=== PATIENT | female | born 1975 | race Caucasian/White ===

== ENCOUNTER 2017-12-12 11:18 | Observation (INO) ==
[2017-12-12] MEDS ORDERED: Ondansetron 4 MG/2 ML VIAL IVP ONE (11:29)
[2017-12-12] MEDS ORDERED: 0.9 % Sodium Chloride 1,000 ML IVC ONE (11:29)
[2017-12-12] MEDS ORDERED: *HR* HYDROmorphone (PF) 1 MG/ML SYRINGE IVP ONE ×3 (11:29→13:46)
--- NOTE | 2017-12-12 11:33 | Emergency Department Note ---
Disposition Clinical Impression: Renal colic Hematuria Qualifiers: Hematuria type: unspecified type Qualified Code(s): R31.9 - Hematuria, unspecified Disposition: Home, Self-Care Instructions: Renal Colic (ED), Abdominal Pain (ED) Referrals: Roderick Moran MD [Primary Care Provider] - Forms: ED Satisfaction Letter, Work/School Release Time of Disposition: 13:47 Abdominal Pain HPI - General Chief Complaint: ED Abdominal Pain Stated Complaint: Right flank pain Time Seen by Provider: 12/12/17 11:21 Source: patient, EMS Mode of arrival: ambulatory Limitations: no limitations Nursing Notes Reviewed: Yes Vital Signs Reviewed: Yes - History of Present Illness HPI Narrative: 42-year-old who states she has recurrent kidney stones and pyelonephritis who comes in with severe right flank pain. Pt Subjective Complaint: abdominal pain, flank pain Onset (ago): Just [employer] Consistency: constant Location: RUQ, R flank Pain Scale: 10 Quality: aching Radiation: back Migration to: no migration Improves with: nothing Worsens with: nothing Context: history of similar episodes Associated symptoms: Reports: nausea. Denies: fever Treatments prior to arrival: none - Related Data Home Medications Medication Instructions Recorded Confirmed ALPRAZolam [Xanax 1 MG Tablet] 1 mg PO BID 10/24/15 10/24/15 Estradiol [Estrace] 2 mg PO DAILY 10/24/15 10/24/15 Melatonin [Melatin] 3 mg PO HS PRN 10/24/15 10/24/15 Trazodone HCl [TraZODone] 100 mg PO HS 10/24/15 10/24/15 Previous Rx's Medication Instructions Recorded Ciprofloxacin HCl [Cipro] 500 mg PO BID #14 tab 10/26/15 OxyCODONE/APAP 5/325 [Percocet 1 each PO Q4HR PRN #18 tablet 10/26/15 5/325 MG] Promethazine [Phenergan] 12.5 mg PO Q6HR #18 tablet 10/26/15 OxyCODONE/APAP 5/325 [Percocet 1 each PO Q4HR PRN #10 tablet 10/30/15 5/325 MG] Ibuprofen [Motrin] 800 mg PO Q8HR #100 tablet 11/12/15 Phenazopyridine [Pyridium] 100 mg PO DAILY #7 tablet 11/12/15 levoFLOXacin [Levaquin] 500 mg PO DAILY #10 tablet 11/12/15 Ondansetron [Zofran ODT] 8 mg SL Q6HR PRN #20 tab.rapdis 02/29/16 traMADol [Ultram] 50 mg PO TID PRN #20 tablet 02/29/16 Oxycodone HCl/Acetaminophen 1 each PO Q6HR PRN #10 tablet 04/27/16 [Percocet 5-325 mg Tablet] OxyCODONE/APAP 5/325 [Percocet 1 each PO Q8HR PRN #15 tablet 04/30/16 5/325 MG] Polyethylene Glycol 3350 [MiraLAX] 17 gm PO DAILY #30 powd.pack 04/30/16 Dicyclomine [Bentyl] 10 mg PO QID PRN #20 capsule 05/10/16 traMADol [Ultram] 50 mg PO Q6HR PRN #20 tablet 05/10/16 Ondansetron ODT [Zofran ODT] 4 mg SL Q6HR PRN #10 tab.rapdis 05/21/16 Ondansetron [Zofran] 8 mg PO Q8HR PRN #8 tablet 05/29/16 Oxycodone HCl [Oxaydo] 7.5 mg PO Q6HR PRN #21 tablet.orl 05/29/16 Ondansetron HCl [Zofran] 4 mg PO 1-2XD PRN #7 tablet 06/28/16 Nitrofurantoin (BID) [Macrobid] 100 mg PO BID 7 Days capsule 08/21/16 Nitrofurantoin (BID) [Macrobid] 100 mg PO BID #14 capsule 10/07/16 Tramadol HCl [Ultram] 50 mg PO QID PRN #10 tab 10/07/16 OxyCODONE/APAP 5/325 [Percocet 1 each PO Q6HR PRN #7 tablet 05/20/17 5/325 MG] Ondansetron ODT [Zofran ODT] 4 mg SL Q6HR #12 tab.rapdis 06/13/17 Oxycodone HCl/Acetaminophen 1 each PO Q8H #9 tablet 06/13/17 [Percocet 5-325 mg Tablet] Naproxen [Naprosyn] 500 mg PO BID #14 tablet 07/14/17 Promethazine [Phenergan] 25 mg PO Q6HR PRN #10 tablet 07/14/17 OxyCODONE/APAP 5/325 [Percocet 1 each PO Q6HR PRN #15 tablet 08/12/17 5/325 MG] Promethazine [Phenergan] 25 mg RC Q6HR #15 supp.rect 08/12/17 Ondansetron ODT [Zofran ODT] 4 mg SL Q4HR #10 tab.rapdis 09/03/17 Allergies Allergy/AdvReac Type Severity Reaction Status Date / Time codeine Allergy Itching Verified 06/13/17 10:46 diphenhydramine Allergy See Verified 06/13/17 10:46 [From Benadryl] Comments hydrocodone [From Vicodin] Allergy Itching Verified 06/13/17 10:46 ibuprofen Allergy See Verified 06/13/17 10:46 Comments latex AdvReac Rash Verified 06/13/17 10:46 All systems ED: reviewed and negative except as stated. Constitutional: Denies: fever, chills, weakness, weight change Eyes: Denies: eye pain, eye discharge, vision change ENT ED: Denies: ear pain, throat pain, dental pain, hearing loss, epistaxis, congestion, dysphagia Cardiovascular: Denies: chest pain, palpitations, dyspnea on exertion, edema, syncope Respiratory: Denies: cough, dyspnea, wheezes, hemoptysis, stridor Gastrointestinal: Reports: abdominal pain. Denies: nausea, vomiting, diarrhea, constipation, hematemesis, melena, hematochezia Genitourinary: Denies: dysuria, frequency, hematuria, discharge Musculoskeletal: Reports: back pain. Denies: neck pain, arthralgia, myalgia Integumentary: Denies: rash, abrasion, lesions Neurological: Denies: headache, weakness, numbness, paresthesias, confusion, abnormal gait, vertigo Psychiatric: Denies: anxiety, depression, suicidal thoughts, homicidal thoughts , auditory hallucinations, visual hallucinations Endocrine: Denies: fatigue Hematological/Lymphatic: Denies: easy bleeding, easy bruising Allergic/Immunologic: Denies: facial swelling, urticaria Abdominal Pain PMH - Past Medical History Medical history: Reports: asthma, hypertension, kidney stones, migraine, renal disease, other Female Surgical History: Reports: cholecystectomy, hysterectomy, other ASSET MANAGER history: Reports: no ASSET MANAGER history Psychiatric history: Reports: anxiety - Social History Smoking status: Former smoker Alcohol use: Reports: none Drug use: Reports: marijuana Physical Exam - General Limitations: no limitations General appearance: alert - Head Head exam: atraumatic, normocephalic, normal inspection - Eye Eye exam: Present: normal appearance, PERRL, EOMI - ENT ENT exam: normal exam, normal oropharynx, mucous membranes moist - Neck Neck exam: Present: normal inspection, full ROM, trachea midline - Chest Chest inspection: Present: normal inspection, symmetric chest wall rise - Respiratory Respiratory exam: Present: normal lung sounds bilaterally - Cardiovascular Cardiovascular exam: Present: regular rate, normal rhythm, normal heart sounds - Abdominal Exam Abdominal exam: Present: soft - Extremities Exam Extremities exam: Present: normal inspection, full ROM. Absent: tenderness, pedal edema - Expanded Lower Extremity Exam Neurovascular/Tendon exam: Absent: motor deficit, sensory deficit, tendon deficit Gait: observed and normal - Back Exam Back exam: Present: normal inspection, full ROM. Absent: tenderness - Neurological Exam Neurological exam: Present: alert, oriented X3 - Psychiatric Psychiatric exam: Present: normal affect, normal mood - Skin Skin exam: Present: warm, dry, intact, normal color Course - Reevaluation(s) Reevaluation #1: The patient has a number of allergies and states the only thing she knows that she can take for sure is Dilaudid. Time: 11:35 - Consultations Consultation #1: Discussed with Time: 14:53 Vital Signs Temperature 98.4 F 12/12/17 11:23 Pulse Rate 91 12/12/17 11:23 Respiratory Rate 17 12/12/17 11:23 Blood Pressure 172/105 12/12/17 11:23 O2 Sat by Pulse Oximetry 100 12/12/17 11:23 Temperature 98.4 F 12/12/17 11:27 Pulse Rate 94 12/12/17 12:34 Respiratory Rate 18 12/12/17 12:34 Blood Pressure 155/102 12/12/17 12:34 O2 Sat by Pulse Oximetry 98 12/12/17 12:34 Oxygen Delivery Oxygen Delivery Room Air Abdominal Pain - Lab Data Result diagrams: 12/12/17 11:55 12/12/17 11:55 Lab Results 12/12/17 12/12/1712/12/18 Range/Units 11:34 11:55 11:55 WBC 9.6 (4.3-11.1) K/mcL RBC 4.12 (3.82-4.97) M/mcL Hgb 12.5 (11.5-15.4) g/dL Hct 38.0 (35.3-44.9) % MCV 92.2 (83.0-100.0) fL MCH 30.3 (28.0-33.3) pg MCHC 32.9 (31.6-35.5) g/dL RDW 12.5 (11.5-14.5) % Plt Count 204 (140-400) K/mcL MPV 11.0 (9.4-12.4) fL Immature Gran % 0.4 (0-4) % Seg Neutrophils % 64.2 % Lymphocytes % 28.9 % Monocytes % 4.0 % Eosinophils % 2.2 % Basophils % 0.3 % Neutrophils # 6.2 (1.6-8.9) K/mcL Lymphocytes # 2.8 (0.6-4.6) K/mcL Monocytes # 0.4 (0.0-1.3) K/mcL Eosinophils # 0.2 (0.0-0.6) K/mcL Basophils # 0.0 (0.0-0.2) K/mcL Sodium 139 (136-145) mEq/L Potassium 3.9 (3.5-5.1) mEq/L Chloride 108 H (98-107) mEq/L Carbon Dioxide 24 (23-29) mEq/L BUN 8 (6-20) mg/dL Creatinine 0.60 (0.60-1.20) mg/dL Est GFR ( Amer) > 60 (> 60) Est GFR (Non-Af Amer) > 60 (> 60) BUN/Creatinine Ratio 13 (6-26) Glucose 112 H (70-105) mg/dL Calculated Osmolality 287 (280-300) Calcium 9.3 (8.6-10.3) mg/dL Total Bilirubin 0.3 (0.3-1.0) mg/dL Direct Bilirubin 0.1 (0.0-0.2) mg/dL Indirect Bilirubin 0.2 (0.0-1.2) mg/dL AST 15 (13-39) Units/L ALT 15 (7-52) Units/L Alkaline Phosphatase 56 (34-104) Units/L Troponin I < 0.03 (< 0.04) ng/mL Serum Total Protein 7.0 (6.4-8.9) g/dL Albumin 4.2 (3.5-5.7) g/dL Globulin 2.8 (2.4-3.5) g/dL Albumin/Globulin Ratio 1.5 (1.1-2.2) Amylase 27 L (29-103) Units/L Lipase 7 L (11-82) Units/L Urine Color Yellow (Yellow) Urine Clarity Slightly Hazy (Clear) Urine pH 6.0 (5.0-8.0) pH Units Ur Specific [place] 1.016 (1.010-1.025) Urine Protein Negative (Neg-Trace) mg/dL Urine Glucose (UA) Normal (Normal) mg/dL Urine Ketones Negative (Negative) mg/dL Urine Blood Large H (Negative) Urine Nitrite Negative (Negative) Urine Bilirubin Negative (Negative) Urine Urobilinogen Normal (Normal) mg/dL Ur Leukocyte Esterase Negative (Negative) Urine Microscopic RBC TNTC H (0-3) per hpf Urine Microscopic WBC 0-3 (0-3) per hpf Ur Squamous Epith Cells Many H (None-Few) per lpf Urine Bacteria Few (None-Few) per hpf Hyaline Casts None Seen (None-Few) per lpf Ur Culture Indicated? NO (NO) - Radiology Data Radiology results reviewed: Yes I reviewed the patient's radiology results. Abdomen/Pelvis CT 12/12/17 11:29 IMPRESSION: Punctate nonobstructing renal calculi Normal caliber appendix Tiny focus of gas is seen within the bladder. Recommend correlation with urinalysis to exclude infection D/ / Alberto Burnham MD / Alberto Burnham MD Interpreting Provider: Alberto Burnham MD - EKG Data EKG attestation: Yes I reviewed and interpreted this EKG. EKG shows normal: sinus rhythm Rate: normal Rhythm: NSR [place]/QRS: normal Interpretation: no acute changes
[2017-12-12 11:50] LABS: Bilirubin,Urine Negative (Negative); Blood,Urine Large (Negative); Color,Urine Yellow (Yellow); Glucose,Urine (UA) Normal (Normal); Ketones,Urine Negative (Negative); Leukocyte Esterase,Urine Negative (Negative); Nitrite,Urine Negative (Negative); Protein,Urine Negative (Neg-Trace); Specific Gravity,Urine 1.016 (1.010-1.025); Urobilinogen,Urine Normal (Normal)
[2017-12-12 11:51] LABS: Bacteria,Urine Few per hpf (None-Few); Hyaline Casts,Urine None Seen per lpf (None-Few); RBC,Urine TNTC per hpf (0-3); Squamous Epithelial Cell,Urine Many per lpf (None-Few); WBC,Urine 0-3 per hpf (0-3)
[2017-12-12 11:52] LABS: Clarity,Urine Slightly Hazy (Clear)
[2017-12-12 12:12] LABS: Basophils % 0.3 %; Eosinophils # 0.2 K/mcL (0.0-0.6); Eosinophils % 2.2 %; Hemoglobin 12.5 g/dL (11.5-15.4); Immature Granulocytes % 0.4 % (0-4); Lymphocytes # 2.8 K/mcL (0.6-4.6); Lymphocytes % 28.9 %; Mean Corpuscular HGB Conc 32.9 g/dL (31.6-35.5); Mean Corpuscular Hemoglobin 30.3 pg (28.0-33.3); Mean Corpuscular Volume 92.2 fL (83.0-100.0); Monocytes # 0.4 K/mcL (0.0-1.3); Neutrophils # 6.2 K/mcL (1.6-8.9); Platelet Count 204 K/mcL (140-400); Red Blood Count 4.12 M/mcL (3.82-4.97); Red Cell Distribution Width 12.5 % (11.5-14.5); Segmented Neutrophils % 64.2 %
[2017-12-12] MEDS ORDERED: *HR* Promethazine 25 MG/ML VIAL IVP ONE (12:22)
[2017-12-12 12:33] LABS: Troponin I < 0.03 ng/mL (< 0.04)
[2017-12-12 12:36] LABS: Alanine Aminotransferase 15 Units/L (7-52); Albumin 4.2 g/dL (3.5-5.7); Albumin/Globulin Ratio 1.5 (1.1-2.2); Alkaline Phosphatase 56 Units/L (34-104); Amylase 27 Units/L (29-103); Aspartate Amino Transferase 15 Units/L (13-39); BUN/Creatinine Ratio 13 (6-26); Bilirubin,Direct 0.1 mg/dL (0.0-0.2); Bilirubin,Indirect 0.2 mg/dL (0.0-1.2); Bilirubin,Total 0.3 mg/dL (0.3-1.0); Blood Urea Nitrogen 8 mg/dL (6-20); Calcium 9.3 mg/dL (8.6-10.3); Carbon Dioxide 24 mEq/L (23-29); Chloride 108 mEq/L (98-107); Globulin 2.8 g/dL (2.4-3.5); Glucose 112 mg/dL (70-105); Lipase 7 Units/L (11-82); Osmolality,Calculated 287 (280-300); Potassium 3.9 mEq/L (3.5-5.1); Sodium 139 mEq/L (136-145); eGFR For African Americans > 60 (> 60); eGFR For Non-African Americans > 60 (> 60)
[2017-12-12] MEDS ORDERED: Loratadine 10 MG TABLET PO PRN (15:35)
--- NOTE | 2017-12-12 15:58 | Internal Med History&Physical ---
Date of Encounter: 12/12/17 Time of Encounter: 15:53 Assessment and Plan (1) Renal colic Current visit: Yes Status: Acute Renocortical from kidney stone, we will continue IV fluids IV pain control urologist was consulted from the ED nausea and vomiting will give phenergan. (2) Urinary tract infection Current visit: Yes Status: Acute Possible urinary tract infection CT scan shows gas in the bladder, will get UC and start ceftriaxone Qualifiers: Urinary tract infection type: acute cystitis Hematuria presence: with hematuria Qualified Code(s): N30.01 - Acute cystitis with hematuria (3) Hypertension Current visit: Yes Status: Chronic continue lisinopril Qualifiers: Hypertension type: essential hypertension Qualified Code(s): I10 - Essential (primary) hypertension (4) Obesity (BMI 35.0-39.9 without comorbidity) Current visit: Yes Status: Chronic life style modification discussed (5) Anxiety Current visit: Yes Status: Chronic continue xanax Internal Medicine - H&P: HPI Chief complaint: right flank pain Admitted From: Home Plans for Post Hospital Care: Home History of present illness: Ms. Henderson is a 42 year old female who has a history of kidney stone, recurrent UTI, hypertension and anxiety asthma presenting emergency room for right flank pain. Right flank pain started a few days ago, got worse this morning, pain is sharp and located in the right flank radiating down to the right groin,7 out of 10, associated with severe nausea vomiting. She also complaining of burning and a frequently urination. Reported a subjective fever last night. CT scan shows punctuated a nonobstructing renal calculi, some gas in the bladder. She follows up with Dr. Flores urologist. UA shows hematuria. Patient is going to be admitted for severe right renal colic and a possible infection. We will give IV fluids and the ceftriaxone Past Med Surg Social Fam HX - Past Medical History Medical history: asthma, hypertension, kidney stones, migraine, renal disease, other Psychiatric history: anxiety - Past Surgical History Surgical History: cholecystectomy, hysterectomy - Social History Smoking Status: Former smoker Smokeless Tobacco Status: No Alcohol use: none Drug use: marijuana - Family History Father Living Status: Still Living Hx Family Cancer: Yes (breast cancer) Hx Family Genitourinary Disorders: Yes (renal stone, CKD) Internal Medicine - H&P: Meds ALPRAZolam [Xanax 1 MG Tablet] 1 mg PO TID PRN 10/24/15 [History] Estradiol [Estrace] 1 mg PO DAILY 10/24/15 [History] Albuterol Sulfate [Albuterol Inhaler] 2 puff IH Q6H PRN 12/12/17 [History] Cetirizine HCl [Zyrtec] 10 mg PO DAILY PRN 12/12/17 [History] Diclofenac Sodium [Voltaren] 50 mg PO BID PRN 12/12/17 [History] Lisinopril/Hydrochlorothiazide [Zestoretic 20-25 mg Tablet] 1 each PO DAILY 11/30 [History] Zolpidem [Ambien] 10 mg PO HS PRN 12/12/17 [History] 3 Allergy/AdvReac Type Severity Reaction Status Date / Time codeine Allergy Itching Verified 06/13/17 10:46 diphenhydramine Allergy See Verified 06/13/17 10:46 [From Benadryl] Comments hydrocodone [From Vicodin] Allergy Itching Verified 06/13/17 10:46 ibuprofen Allergy See Verified 06/13/17 10:46 Comments latex AdvReac Rash Verified 06/13/17 10:46 All Systems PM: A all-system review of systems was performed and is negative for pertinent findings except as documented above in the HPI. - Constitutional Vitals: Temp Pulse Resp BP Pulse Ox 98.4 F 94 17 176/92 98 12/12/17 11:27 12/12/17 12:34 12/12/17 15:25 12/12/17 15:25 12/12/17 12:34 General appearance: Present: A&O X 3, morbidly obese, pleasant Exam: CONSTITUTIONAL: Patient appears as an age appropriate female well developed, in no acute distress. EYES Clear sclerae, bilateral pupils are equal, reactive to light and accommodation. Extraocular movements are intact RESPIRATORY: No accessory muscle use, bilateral clear to auscultation, no wheezing, no crackles/rales. CARDIOVASCULAR: Regular heart rate, normal S1 and S2, no murmurs GASTROINTESTINAL: bowel sounds present, soft, right CVA tenderness. No hepatosplenomegaly. No bilateral CVA tenderness MUSCULOSKELETAL: Joints in normal range of motion, no clubbing, no edema, no cyanosis. Bilateral peripheral pulses 2+ LYMPHATIC no lymphadenopathy in neck, groin and axilla bilaterally, no thyromegaly. NEUROLOGIC: CN II to XII are grossly intact, no focal neurological deficit. Deep tendon reflexes 2+ bilaterally. Normal light touch sensation to upper and lower extremity PSYCHIATRIC: Oriented x3, with good insight, mood is euthymic. No hallucinations or delusions. SKIN: Skin warm and dry, no rashes, no open wound. Internal Med - H&P Results - Labs CBC & Chem 7: 12/12/17 11:55 12/12/17 11:55
[2017-12-12] MEDS ORDERED: Naloxone 0.4 MG/ML INJ IVP PRN (16:08)
[2017-12-12] MEDS ORDERED: *HR* OxyCODONE Immed Rel 5 MG TABLET PO PRN (16:16)
--- NOTE | 2017-12-12 16:20 | Urology - Consult Note ---
Date of Encounter: 12/12/17 Time of Encounter: 16:18 - Assessment and Plan (1) Bladder pain Current Visit: Yes Status: Acute Assessment and plan: Unsure of cause of patient's bladders pain at this time. During her last visit I discussed with her that I believe that she could have interstitial cystitis. A common bladder irritants handout was given to the patient. She never followed up after that visit to discuss any improvement with stopping different dietary items. This could be somewhat of her cause of her bladder discomfort. (2) Renal colic Current Visit: Yes Status: Acute Assessment and plan: I question whether the patient truly has renal colic as her exam is not consistent with renal pain. Her urinalysis is stable compared to prior urinalysis. I have personally reviewed her CT scan which did not show any obstructing stone. Continue pain management per primary team. (3) Hematuria Current Visit: Yes Status: Acute Assessment and plan: Patient has had a complete workup for hematuria. No need for cystoscopic evaluation at this time. Qualifiers: Hematuria type: asymptomatic microscopic Qualified Code(s): R31.21 - Asymptomatic microscopic hematuria Urology CN:[facility] Consult date: 12/12/17 Reason for consult Urology: Other (right flank pain) Requesting physician: Meredith Bo History of present illness: Meaghan is a 42-year-old female well known to me for history of persistent bladder discomfort as well as known history of microscopic hematuria and air within the bladder. Patient underwent cystoscopic evaluation in early 2017 which was negative for any obvious bladder cause for the patient's discomfort. Patient has had multiple CT scans done within the past couple of years which have always shown punctate renal stones without any obvious obstructive cause for her discomfort. Patient now presents emergency Department secondary to severe right-sided flank pain and with some nausea and vomiting. Patient states that she had to leave work to come to the hospital. Her pain is a 10 out of 10 in nature. It is located in her right flank with some radiation to her right groin. Patient's laboratory values were unremarkable. Her urinalysis showed large blood which is consistent with past urinalyses. Past Med Surg Social Fam HX - Past Medical History Medical history: asthma, hypertension, kidney stones, migraine, renal disease, other Psychiatric history: anxiety - Past Surgical History Surgical History: cholecystectomy, hysterectomy - Social History Smoking Status: Former smoker Smokeless Tobacco Status: No Alcohol use: none Drug use: marijuana - Family History Father Living Status: Still Living Hx Family Cancer: Yes (breast cancer) Hx Family Genitourinary Disorders: Yes (renal stone, CKD) Mother Living Status: Still Living Hx Family Cancer: Yes (breast cancer) Medications and Allergies ALPRAZolam [Xanax 1 MG Tablet] 1 mg PO TID PRN 10/24/15 [History] Estradiol [Estrace] 1 mg PO DAILY 10/24/15 [History] Albuterol Sulfate [Albuterol Inhaler] 2 puff IH Q6H PRN 12/12/17 [History] Cetirizine HCl [Zyrtec] 10 mg PO DAILY PRN 12/12/17 [History] Diclofenac Sodium [Voltaren] 50 mg PO BID PRN 12/12/17 [History] Lisinopril/Hydrochlorothiazide [Zestoretic 20-25 mg Tablet] 1 each PO DAILY 11/30 [History] Zolpidem [Ambien] 10 mg PO HS PRN 12/12/17 [History] 3 Allergy/AdvReac Type Severity Reaction Status Date / Time codeine Allergy Itching Verified 06/13/17 10:46 diphenhydramine Allergy See Verified 06/13/17 10:46 [From Benadryl] Comments hydrocodone [From Vicodin] Allergy Itching Verified 06/13/17 10:46 ibuprofen Allergy See Verified 06/13/17 10:46 Comments latex AdvReac Rash Verified 06/13/17 10:46 Review of Systems - Constitutional no chills, no fever(s) - EENT Nose, mouth and throat: no dizziness, no headache(s) - Cardiovascular no chest pain - Respiratory no cough - Gastrointestinal abdominal pain - Genitourinary Genitourinary: no hematuria - Musculoskeletal back pain - Integumentary no erythema, no swelling - Neurological no confusion, no weakness - Psychiatric anxiety, no confusion - Hematologic/Lymphatic no lymphadenopathy - Allergic/Immunologic no throat swelling, no wheezing Exam Initial Vital Signs Temp Pulse Resp BP Pulse Ox 98.4 F 91 17 172/105 100 12/12/17 11:23 12/12/17 11:23 12/12/17 11:23 12/12/17 11:23 12/12/17 11:23 - General physical appearance Present: well developed, well nourished, moderate distress - Eyes Present: normal ocular movement. Absent: icteric - Neck Present: no masses, no lymphadenopathy - Respiratory Present: normal respiratory effort, clear to auscultation - Cardiovascular Cardiovascular exam IM: RRR, tachycardia - Abdomen Abdomen: Present: soft. Absent: suprapubic tenderness - Integumentary Present: no rash, no abnormal pigmentation - Neurologic Present: normal coordination. Absent: confused - Additional Findings Back: Patient has some right flank pain on very light palpation. This was located more on the right side as opposed to more posterior location which would be kidney. Urology Results - Labs 12/12/17 11:55 12/12/17 11:55 Abnormal lab results Chloride 108 mEq/L (98-107) H 12/12/17 11:55 Glucose 112 mg/dL (70-105) H 12/12/17 11:55 Amylase 27 Units/L (29-103) L 12/12/17 11:55 Lipase 7 Units/L (11-82) L 12/12/17 11:55 Urine Blood Large (Negative) H 12/12/17 11:34 Urine Microscopic RBC TNTC per hpf (0-3) H 12/12/17 11:34 Ur Squamous Epith Cells Many per lpf (None-Few) H 12/12/17 11:34 All other labs normal. - Imaging CT scan - abdomen: image reviewed CT scan - pelvis: image reviewed Consult Discharge Plan - Plan Referrals: Roderick Moran MD [Primary Care Provider] -
[2017-12-12] MEDS: *HR* Heparin 5,000 UNIT/ML VIAL SQ SCH ×2 (16:48→20:53)
[2017-12-12] MEDS: cefTRIAXone 1,000 MG in Water for inj. (sterile) 20 ML 10 ML IVP SCH (16:49)
[2017-12-12] MEDS: Ringers Solution, Lactated 1,000 ML IVC SCH ×2 (16:50→20:54)
[2017-12-12] MEDS: OXYCODONE Oral CONC 10 MG/0.5 ML ORAL.SYG SL PRN (20:58)
[2017-12-12] MEDS: ALPRAZolam 1 MG TABLET PO PRN (20:59)
[2017-12-12] MEDS: *HR* Promethazine 25 MG/ML VIAL IVP PRN (20:59)
[2017-12-13] MEDS: *HR* Promethazine 25 MG/ML VIAL IVP PRN ×2 (04:33→10:50)
[2017-12-13] MEDS: OXYCODONE Oral CONC 10 MG/0.5 ML ORAL.SYG SL PRN ×2 (04:34→10:50)
[2017-12-13 04:35] LABS: Basophils % 0.3 %; Eosinophils # 0.3 K/mcL (0.0-0.6); Eosinophils % 2.7 %; Hemoglobin 11.6 g/dL (11.5-15.4); Immature Granulocytes % 0.4 % (0-4); Lymphocytes # 2.7 K/mcL (0.6-4.6); Lymphocytes % 29.3 %; Mean Corpuscular HGB Conc 33.1 g/dL (31.6-35.5); Mean Corpuscular Hemoglobin 30.4 pg (28.0-33.3); Mean Corpuscular Volume 91.6 fL (83.0-100.0); Mean Platelet Volume 10.2 fL (9.4-12.4); Monocytes # 0.4 K/mcL (0.0-1.3); Monocytes % 4.3 %; Neutrophils # 5.7 K/mcL (1.6-8.9); Platelet Count 222 K/mcL (140-400); Red Blood Count 3.82 M/mcL (3.82-4.97); Red Cell Distribution Width 12.4 % (11.5-14.5)
[2017-12-13 04:55] LABS: BUN/Creatinine Ratio 10 (6-26); Blood Urea Nitrogen 6 mg/dL (6-20); Calcium 9.1 mg/dL (8.6-10.3); Carbon Dioxide 27 mEq/L (23-29); Chloride 106 mEq/L (98-107); Glucose 107 mg/dL (70-105); Osmolality,Calculated 284 (280-300); Potassium 3.8 mEq/L (3.5-5.1); Sodium 138 mEq/L (136-145); eGFR For African Americans > 60 (> 60); eGFR For Non-African Americans > 60 (> 60)
[2017-12-13] MEDS: *HR* Heparin 5,000 UNIT/ML VIAL SQ SCH (06:14)
--- NOTE | 2017-12-13 07:58 | Urology Progress Note ---
Date of Encounter: 12/13/17 Time of Encounter: 07:57 - Assessment and Plan (1) Bladder pain Current Visit: Yes Status: Acute Assessment and plan: Improved. (2) Renal colic Current Visit: Yes Status: Acute Assessment and plan: Do not believe the patient is having kidney pain. Patient CT scan is negative for any obvious ureteral obstruction. Urology will sign off. Patient will need follow-up in 3-4 weeks for further discussion regarding possible interstitial cystitis. (3) Hematuria Current Visit: Yes Status: Acute Qualifiers: Hematuria type: asymptomatic microscopic Qualified Code(s): R31.21 - Asymptomatic microscopic hematuria Progress Note Narrative: Patient seen. Patient states that her right-sided flank discomfort is improved but now she has developed some left-sided flank discomfort. Vital signs within normal. Labs normal. Objective Initial Vital Signs Temp Pulse Resp BP Pulse Ox 98.4 F 91 17 172/105 100 12/12/17 11:23 12/12/17 11:23 12/12/17 11:23 12/12/17 11:23 12/12/17 11:23 - General physical appearance Present: well developed - Respiratory Present: normal expansion, normal respiratory effort - Abdomen Present: soft. Absent: tender - Labs 12/13/17 03:40 12/13/17 03:40 Diabetes panel 12/13/17 Range/Units 03:40 Sodium 138 (136-145) mEq/L Potassium 3.8 (3.5-5.1) mEq/L Chloride 106 (98-107) mEq/L Carbon Dioxide 27 (23-29) mEq/L BUN 6 (6-20) mg/dL Creatinine 0.62 (0.60-1.20) mg/dL Glucose 107 H (70-105) mg/dL Calcium 9.1 (8.6-10.3) mg/dL Calcium panel 12/13/17 Range/Units 03:40 Calcium 9.1 (8.6-10.3) mg/dL Pituitary panel 12/13/17 Range/Units 03:40 Sodium 138 (136-145) mEq/L Potassium 3.8 (3.5-5.1) mEq/L Chloride 106 (98-107) mEq/L Carbon Dioxide 27 (23-29) mEq/L BUN 6 (6-20) mg/dL Creatinine 0.62 (0.60-1.20) mg/dL Glucose 107 H (70-105) mg/dL Calcium 9.1 (8.6-10.3) mg/dL Adrenal panel 12/13/17 Range/Units 03:40 Sodium 138 (136-145) mEq/L Potassium 3.8 (3.5-5.1) mEq/L Chloride 106 (98-107) mEq/L Carbon Dioxide 27 (23-29) mEq/L BUN 6 (6-20) mg/dL Creatinine 0.62 (0.60-1.20) mg/dL Glucose 107 H (70-105) mg/dL Calcium 9.1 (8.6-10.3) mg/dL Consult Discharge Plan - Plan Referrals: Roderick Moran MD [Primary Care Provider] -
[2017-12-13] MEDS: cefTRIAXone 1,000 MG in Water for inj. (sterile) 20 ML 10 ML IVP SCH (09:22)
[2017-12-13] MEDS: ALPRAZolam 1 MG TABLET PO PRN (09:22)
[2017-12-13 10:51] VITALS: BP 127/80
--- NOTE | 2017-12-13 11:17 | Discharge Summary ---
Date of Encounter: 12/13/17 Time of Encounter: 11:13 - Discharge Diagnosis (1) Renal colic Priority: Primary Status: Resolved (2) Urinary tract infection Priority: Secondary Status: Resolved Qualifiers: Urinary tract infection type: acute cystitis Hematuria presence: with hematuria Qualified Code(s): N30.01 - Acute cystitis with hematuria (3) Hypertension Priority: Secondary Status: Chronic Qualifiers: Hypertension type: essential hypertension Qualified Code(s): I10 - Essential (primary) hypertension (4) Obesity (BMI 35.0-39.9 without comorbidity) Priority: Secondary Status: Chronic (5) Anxiety Priority: Secondary Status: Chronic Hospital course: Ms. Henderson is a 42 year old female who has a history of kidney stone, recurrent UTI, hypertension and anxiety asthma presenting emergency room for right flank pain. Right flank pain started a few days ago, got worse this morning, pain is sharp and located in the right flank radiating down to the right groin,7 out of 10, associated with severe nausea vomiting. She also complaining of burning and a frequently urination. Reported a subjective fever last night. CT scan shows punctuated a nonobstructing renal calculi, some gas in the bladder. She follows up with Dr. Flores urologist. UA shows hematuria. Urology was consulted, signed off, follow up as outpatient for possible interstitial cystitis. Patient's renal colic resolved, IV Dilaudid DC'd. Afebrile no white counts she has been tolerating his diet discharged home on stable condition Discharge discussed with: patient Time spent discussing smoking cessation with patient: 3 to 10 minutes - Time Spent with Patient Total time spent providing and/or coordinating discharge services: Less than 30 minutes - Discharge Medications Prescriptions: Ciprofloxacin HCl [Cipro] 250 mg PO BID 5 Days #10 tablet Home Medications: ALPRAZolam [Xanax 1 MG Tablet] 1 mg PO TID PRN 10/24/15 [History] Estradiol [Estrace] 1 mg PO DAILY 10/24/15 [History] Albuterol Sulfate [Albuterol Inhaler] 2 puff IH Q6H PRN 12/12/17 [History] Cetirizine HCl [Zyrtec] 10 mg PO DAILY PRN 12/12/17 [History] Diclofenac Sodium [Voltaren] 50 mg PO BID PRN 12/12/17 [History] Lisinopril/Hydrochlorothiazide [Zestoretic 20-25 mg Tablet] 1 each PO DAILY 11/30 [History] Zolpidem [Ambien] 10 mg PO HS PRN 12/12/17 [History] Ciprofloxacin HCl [Cipro] 250 mg PO BID 5 Days #10 tablet 12/13/17 [Rx] Allergies/Adverse Reactions: 3 Allergy/AdvReac Type Severity Reaction Status Date / Time codeine Allergy Itching Verified 06/13/17 10:46 diphenhydramine Allergy See Verified 06/13/17 10:46 [From Benadryl] Comments hydrocodone [From Vicodin] Allergy Itching Verified 06/13/17 10:46 ibuprofen Allergy See Verified 06/13/17 10:46 Comments latex AdvReac Rash Verified 06/13/17 10:46 Date of admission: 12/12/17 15:06 Primary care physician: Roderick Moran MD Discharging clinician: Meredith Bo Anticipated date of discharge: 12/13/17 - Constitutional Vitals: Temp Pulse Resp BP Pulse Ox 98.2 F 78 16 127/80 96 12/13/17 10:48 12/13/17 10:48 12/13/17 10:48 12/13/17 10:48 12/13/17 10:48 General appearance: Present: A&O X 3, morbidly obese, pleasant Exam: CONSTITUTIONAL: patient appears as an age appropriate female in no acute distress. EYES Clear sclerae, bilateral pupils are equal, reactive to light. EMOI. RESPIRATORY: No accessory muscle use, bilateral clear to auscultation, no wheezing, no crackles/rales. CARDIOVASCULAR: Regular heart rate, normal S1 and S2, no murmurs GASTROINTESTINAL: bowel sounds present, soft, no tenderness. MUSCULOSKELETAL: Joints in normal range of motion, no clubbing, no edema, no cyanosis. Bilateral peripheral pulses 2+. NEUROLOGIC: CN II to XII are grossly intact, no focal neurological deficit. - Patient Status Disposition: Home, Self-Care Condition: Good Functional capacity at discharge: independent ambulation Overall status at discharge: patient is back to baseline - Discharge Instructions Follow Up With: Roderick Moran MD [Primary Care Provider] - López Flores MD [Partnered Physician] - - Diet and Activity Activity: increase activity as tolerated, resume usual activities as tolerated Diet: advance to your usual diet
--- NOTE | 2017-12-16 08:39 | Electrocardiograph Report ---
[place] [id number] Test Date: 2017-12-12 Pat Name: Meaghan Henderson Department: 102 Room: 3A14 Gender: F Customer Acquisition Specialist: John : 1975 Requested By: Deven Miles Order Number: [id number] Reading MD: Jeannine Wallis Measurements Intervals [place] Rate: 79 P: 42 CA: 126 QRS: 57 QRSD: 95 T: 26 QT: 376 QTc: 410 Interpretive Statements SINUS RHYTHM Electronically Signed On 12-16-2017 8:37:49 EST by Jeannine Wallis
== END 2017-12-13 13:26 | disposition home or self-care (01) ==
LOC: EMEROO 11:18 → 3ANU 11:18
PROVIDERS: ADMIT Pediatrics; ATTEND Family Medicine

== ENCOUNTER 2019-06-06 11:08 | Observation (INO) ==
--- NOTE | 2019-06-06 11:20 | Emergency Department Note ---
Disposition Clinical Impression: Ureteritis, Pyelonephritis Chest pain Qualifiers: Chest pain type: chest pain on breathing Qualified Code(s): R07.1 - Chest pain on breathing; R07.81 - Pleurodynia Disposition: Admitted As Inpatient Condition: Fair Prescriptions: cephALEXin [Keflex] 500 mg PO TID 7 Days #21 capsule Morphine Sulfate Immed Rel [Morphine Sulfate] 15 mg PO Q6HR PRN 4 Days #12 tab PRN Reason: Pain Referrals: John Moran MD [Non-Partnered Physician] - Robin Armstrong MD [Partnered Physician] - Forms: ED Satisfaction Letter Time of Disposition: 13:56 SOB HPI - General Chief Complaint: ED Shortness of Breath/Dyspnea Stated Complaint: BILL Time Seen by Provider: 06/06/19 11:18 Source: patient Mode of arrival: ambulatory Limitations: no limitations Nursing Notes Reviewed: Yes Vital Signs Reviewed: Yes - History of Present Illness Patient is a 44-year-old female past medical history of metastatic lung cancer with lymphatic spread, chronic cystitis, chronic chronic recurrent ureteritis and pyelonephritis presenting for a 2 day history of left sided flank pain radiating into her left ribs and left lower quadrant of her abdomen. The patient states she was concerned due to her lung masses and felt this may be related to her cancer as she has pain which is pleuritic in nature with deep breathing. However the patient states also feels like her previous kidney stones and/or pyelonephritis. The patient states she has had cramping when she tries to urinate with pain that goes to 10 out of 10 on the pain scale which has not been well controlled with [id number] analgesics at home. The patient states that she has had some nausea and vomiting but otherwise denies fevers chills or any other concerns or complaints at this time. Upon my initial evaluation, my general impression is that the patient is in mild to moderate distress due to her symptoms. However she has awake, alert, oriented, engaged to conversation and answering questions appropriately. There are no overt lateralizing signs, the patient is in no acute distress; their skin appears to be normal in color, they are not pale, not cyanotic, and not diaphoretic, they are sitting up in hospital bed interacting appropriately with environment. Pt Subjective Complaint: pain with inspiration Onset (ago): day(s) Severity: severe Consistency/Duration: constant, gradually worsening Improves with: medication Worsens with: movement, inspiration Known history of: other (Cancer, recurrent pyelonephritis, urethritis, cystitis) Associated symptoms: Reports: pain with inspiration, nausea/vomiting Treatment prior to arrival: none Cough present: No - Related Data Home Medications Medication Instructions Recorded Confirmed Estradiol [Estrace] 1 mg PO DAILY 10/24/15 05/01/19 Albuterol Sulfate [Proventil 2 puff IH Q6H PRN 12/12/17 05/01/19 Inhaler] Lisinopril/Hydrochlorothiazide 1 each PO DAILY 12/12/17 05/01/19 [Zestoretic 20-25 mg Tablet] Depakote 1,000 mg PO HS 05/01/19 05/01/19 Previous Rx's Medication Instructions Recorded Oxycodone HCl/Acetaminophen 1 each PO Q6HR PRN 3 Days #12 05/01/19 [Percocet 5-325 mg Tablet] tablet predniSONE [PredniSONE] 40 mg PO DAILY 5 Days #10 tablet 05/01/19 OxyCODONE/APAP 5/325 [Percocet 1 each PO Q8HR PRN 3 Days #8 tablet 05/14/19 5/325 MG] Morphine Sulfate Immed Rel 15 mg PO Q6HR PRN 4 Days #12 tab 06/06/19 [Morphine Sulfate] cephALEXin [Keflex] 500 mg PO TID 7 Days #21 capsule 06/06/19 Allergies Allergy/AdvReac Type Severity Reaction Status Date / Time codeine Allergy Itching Verified 08/22/18 15:35 diphenhydramine Allergy See Verified 08/22/18 15:35 [From Benadryl] Comments hydrocodone [From Vicodin] Allergy Itching Verified 08/22/18 15:35 ibuprofen Allergy See Verified 08/22/18 15:35 Comments latex AdvReac Rash Verified 08/22/18 15:35 Review of Systems: *See History of Present Illness for more detail Constitutional: Denies: fever, chills Cardiovascular: Admits, pleuritic chest pain Respiratory: Denies: dyspnea, cough, hemoptysis Gastrointestinal: Admits: abdominal pain, left flank pain, nausea, vomiting, denies: diarrhea, constipation, hematemesis, melena, hematochezia Genitourinary: Denies: hematuria Musculoskeletal: Denies: back pain, neck pain Neurological: Denies: headache, weakness, lightheadedness/dizziness, numbness, paresthesias, difficulty with ambulation. Endocrine: Denies: fatigue All systems ED: reviewed and negative except as stated. Review of Systems: As Per HPI Past Medical History - Past Medical History Medical history: Reports: asthma, hypertension, kidney stones, migraine, renal disease, other Surgical history: Reports: cholecystectomy, hysterectomy Psychiatric history: Reports: anxiety ASSOCIATE TRAINER history: Reports: no ASSOCIATE TRAINER history - Social History Smoking Status: Former smoker Smokeless Tobacco Status: No Alcohol use: Reports: none Drug use: Reports: none, marijuana Physical Exam Constitutional: Mild to moderate distress due to pain, otherwise [id number], engaged to conversation, speech is fluid, answers questions appropriately Neuro: GCS 15, no overt focal neurological deficits Head: Atraumatic, normocephalic Eyes: Pupils equal, round and reactive to light, no scleral icterus, no conjunctival injection Neck: Trachea midline without deviation. Anterior neck is supple without swelling. *Chest: Symmetric chest wall rise *Heart: Cardiac rhythm and rate are regular with S1 and S2 , no S3 or S4 appreciated, no murmurs, gallops, rubs, or clicks. *Lungs: Lungs are clear to auscultation bilaterally, without accessory muscle use or prolonged expiratory phase. No wheezes, rhonchi or stridor appreciated. Abdomen: Diffuse tenderness to palpation. Abdomen is otherwise flat, soft to palpation, normal bowel sounds. No abdominal bruit auscultated. Non-distended, non-rigid, no organomegaly, no ascites appreciated. No pulsatile mass, no tenderness or guarding to palpation in all four quadrants, no rebound Back: Left-sided CVA tenderness Extremities: Normal capillary refill without evidence of pedal edema, joint swelling or erythema. Pulses/motor intact in all 4 extremities. Psychiatric exam: Patient displays a normal affect and mood for the environment. No overt signs of hallucination. Integumentary: warm, dry, intact, normal color. No rash, cyanosis, diaphoresis, erythema, or pallor - General Limitations: no limitations General appearance: alert, in distress Course Course Narrative: Basic labs, left-sided rib series, chest x-ray, CT scan abdomen and pelvis, fentanyl, Phenergan, Norflex for the management of patient's symptoms. I discussed my plan of care the patient she verbalizes understanding and her with plan. Vital Signs Temperature 99.8 F H 06/06/19 11:10 Pulse Rate 114 06/06/19 11:10 Respiratory Rate 20 06/06/19 11:10 Blood Pressure 117/79 06/06/19 11:10 O2 Sat by Pulse Oximetry 97 06/06/19 11:10 Temperature 99.8 F H 06/06/19 11:10 Pulse Rate 96 06/06/19 13:27 Respiratory Rate 12 06/06/19 13:27 Blood Pressure 110/67 06/06/19 13:27 O2 Sat by Pulse Oximetry 98 06/06/19 13:27 Oxygen Delivery Oxygen Delivery Room Air Shortness of Breath/Dyspnea - MDM Narrative Medical decision making narrative: The patients imaging results show a left sided ureteritis along with cystitis which is somewhat changed from previous imaging results. Laboratory results are negative for acute pathology. Evaluation results were discussed with the patient at bedside. Patient was given time to ask questions and state concerns. The patient states that they have had mild relief of their symptoms with our management here in the ED however she still rates her pain as being severe in nature. The patient will be given 1 g of IV push Rocephin here in the ED for the management of pain and antibiotic coverage for ureteritis and likely pyelonephritis and given half a milligram of Dilaudid for further management of her pain.. Patient will be admitted to hospitals medicine service for pain control with urology consult placed for cystitis/urethritis. - Lab Data Lab results reviewed: Yes I reviewed the patient's lab results. Result diagrams: 06/06/19 11:35 06/06/19 11:35 Lab Results 06/06/19 06/06/19 06/06/19 Range/Units 11:35 11:35 11:40 WBC 9.2 (4.3-11.1) K/mcL RBC 3.85 (3.82-4.97) M/mcL Hgb 11.5 (11.5-15.4) g/dL Hct 35.4 (35.3-44.9) % MCV 91.9 (83.0-100.0) fL MCH 29.9 (28.0-33.3) pg MCHC 32.5 (31.6-35.5) g/dL RDW 13.1 (11.5-14.5) % Plt Count 240 (140-400) K/mcL MPV 9.0 L (9.4-12.4) fL Immature Gran % 0.3 (0-4) % Seg Neutrophils % 63.7 % Lymphocytes % 25.1 % Monocytes % 6.8 % Eosinophils % 3.9 % Basophils % 0.2 % Neutrophils # 5.8 (1.6-8.9) K/mcL Lymphocytes # 2.3 (0.6-4.6) K/mcL Monocytes # 0.6 (0.0-1.3) K/mcL Eosinophils # 0.4 (0.0-0.6) K/mcL Basophils # 0.0 (0.0-0.2) K/mcL Sodium 138 (136-145) mEq/L Potassium 3.9 (3.5-5.1) mEq/L Chloride 104 (98-107) mEq/L Carbon Dioxide 27 (23-29) mEq/L BUN 7 (6-20) mg/dL Creatinine 0.77 (0.60-1.20) mg/dL Est GFR ( Amer) > 60 (> 60) Est GFR (Non-Af Amer) > 60 (> 60) BUN/Creatinine Ratio 9 (6-26) Glucose 98 (70-105) mg/dL Calculated Osmolality 284 (280-300) Calcium 9.1 (8.6-10.3) mg/dL Total Bilirubin 0.3 (0.3-1.0) mg/dL Direct Bilirubin 0.1 (0.0-0.2) mg/dL Indirect Bilirubin 0.2 (0.0-1.2) mg/dL AST 11 L (13-39) Units/L ALT 8 (7-52) Units/L Alkaline Phosphatase 65 (34-104) Units/L Serum Total Protein 7.6 (6.4-8.9) g/dL Albumin 4.1 (3.5-5.7) g/dL Globulin 3.5 (2.4-3.5) g/dL Albumin/Globulin Ratio 1.2 (1.1-2.2) Lipase 5 L (11-82) Units/L Urine Color Yellow (Yellow) Urine Clarity Clear (Clear) Urine pH 6.0 (5.0-8.0) pH Units Ur Specific [place] 1.013 (1.010-1.025) Urine Protein Negative (Neg-Trace) mg/dL Urine Glucose (UA) Normal (Normal) mg/dL Urine Ketones Negative (Negative) mg/dL Urine Blood Large H (Negative) Urine Nitrite Negative (Negative) Urine Bilirubin Negative (Negative) Urine Urobilinogen Normal (Normal) mg/dL Ur Leukocyte Esterase Negative (Negative) Urine Microscopic RBC TNTC H (0-3) per hpf Urine Microscopic WBC 0-3 (0-3) per hpf Ur Squamous Epith Cells Many H (None-Few) per lpf Urine Bacteria None Seen (None-Few) per hpf Hyaline Casts None Seen (None-Few) per lpf Ur Culture Indicated? NO (NO) Urine Test (Negative) 06/06/19 Range/Units 11:40 WBC (4.3-11.1) K/mcL RBC (3.82-4.97) M/mcL Hgb (11.5-15.4) g/dL Hct (35.3-44.9) % MCV (83.0-100.0) fL MCH (28.0-33.3) pg MCHC (31.6-35.5) g/dL RDW (11.5-14.5) % Plt Count (140-400) K/mcL MPV (9.4-12.4) fL Immature Gran % (0-4) % Seg Neutrophils % % Lymphocytes % % Monocytes % % Eosinophils % % Basophils % % Neutrophils # (1.6-8.9) K/mcL Lymphocytes # (0.6-4.6) K/mcL Monocytes # (0.0-1.3) K/mcL Eosinophils # (0.0-0.6) K/mcL Basophils # (0.0-0.2) K/mcL Sodium (136-145) mEq/L Potassium (3.5-5.1) mEq/L Chloride (98-107) mEq/L Carbon Dioxide (23-29) mEq/L BUN (6-20) mg/dL Creatinine (0.60-1.20) mg/dL Est GFR ( Amer) (> 60) Est GFR (Non-Af Amer) (> 60) BUN/Creatinine Ratio (6-26) Glucose (70-105) mg/dL Calculated Osmolality (280-300) Calcium (8.6-10.3) mg/dL Total Bilirubin (0.3-1.0) mg/dL Direct Bilirubin (0.0-0.2) mg/dL Indirect Bilirubin (0.0-1.2) mg/dL AST (13-39) Units/L ALT (7-52) Units/L Alkaline Phosphatase (34-104) Units/L Serum Total Protein (6.4-8.9) g/dL Albumin (3.5-5.7) g/dL Globulin (2.4-3.5) g/dL Albumin/Globulin Ratio (1.1-2.2) Lipase (11-82) Units/L Urine Color (Yellow) Urine Clarity (Clear) Urine pH (5.0-8.0) pH Units Ur Specific [place] (1.010-1.025) Urine Protein (Neg-Trace) mg/dL Urine Glucose (UA) (Normal) mg/dL Urine Ketones (Negative) mg/dL Urine Blood (Negative) Urine Nitrite (Negative) Urine Bilirubin (Negative) Urine Urobilinogen (Normal) mg/dL Ur Leukocyte Esterase (Negative) Urine Microscopic RBC (0-3) per hpf Urine Microscopic WBC (0-3) per hpf Ur Squamous Epith Cells (None-Few) per lpf Urine Bacteria (None-Few) per hpf Hyaline Casts (None-Few) per lpf Ur Culture Indicated? (NO) Urine Test Negative (Negative) - Radiology Data Radiology results reviewed: Yes I reviewed the patient's radiology results. Chest X-Ray 06/06/19 11:22 IMPRESSION: No acute cardiopulmonary disease. Multiple bilateral pulmonary nodules consistent with metastatic disease as noted on recent PET-CT. No acute osseous abnormality of the left ribs. D/ / Felipe Johnson MD / Felipe Johnson MD Interpreting Provider: Felipe Johnson MD Ribs X-Ray 06/06/19 11:40 IMPRESSION: No acute cardiopulmonary disease. Multiple bilateral pulmonary nodules consistent with metastatic disease as noted on recent PET-CT. No acute osseous abnormality of the left ribs. D/ / Felipe Johnson MD / Felipe Johnson MD Interpreting Provider: Felipe Johnson MD Abdomen/Pelvis CT 06/06/19 12:11 IMPRESSION: 1. Gas in the urinary bladder may be due to cystitis. This is a new finding compared to PET-CT from 06/02/2019. Additionally, there is left urothelial thickening raising the possibility for ureteritis. Correlation with urinalysis is recommended. 2. Left nephrolithiasis. No left ureteral calculi. 3. Lung bases again demonstrate multiple noncalcified lung nodules, suspicious for pulmonary metastatic disease or infectious/inflammatory process. D/ / 06/06/2019 13:22:23 Becca Jacobsen MD / isela Interpreting Provider: Becca Jacobsen MD - EKG Data EKG attestation: Yes I reviewed and interpreted this EKG. EKG results narrative: The patients EKG shows a sinus rhythm with a borderline right axis deviation at a computer analyzed rate of 93 beats per minute, OR interval of 121 mil liseconds, a QRS duration of 104 milliseconds, a QT/QTc interval of 368 / 458 milliseconds respectively. There are no significant ST segment elevations, depressions, pathologic Q waves, abnormal T-wave inversions, nor any other signs of acute ischemic change. This EKG that was performed today is generally consistent in morphology with prior EKG that was performed on 05/14/2018. Attestation Statement - Attestation Attestation: Patient was seen with resident physician. I reviewed the history, physical, assessment and plan, and agree with the findings. I also personally evaluated this patient and had [id number] time with this patient. 41 through old female presents emergency Department with chief complaint of chest pain shortness of breath and nausea and vomiting. Patient states that it started earlier today. No specific injury. She says she feels like a chest wall pain left side laterally. Said the pain shoots down anteriorly at sharp in nature and worse with movements worse with deep inspirations worse with palpation. She said the pain was so bad she threw up. Denies cardiac history denies pulmonary history no other complaints. No traumatic injuries. Review of systems as above remainder negative. Physical exam vital signs are stable. ENT is unremarkable. Heart regular rhythm and rate lungs are clear. Abdomen is soft and nontender. Extremity is unremarkable. Neurologically intact pre-and skin no rashes psych normal. Chest wall patient has Reproducible Pain with Palpation Lateral Aspect of the Chest Wall on the Left Side. Underneath the Armpit. Push on This Area Causes the Patient's Significant Discomfort. ED Course. We Will Do Usual Cardiac Workup. EKG Showed No Acute Ischemic Changes. We Will Also Check Chest X-Ray and Rib Films on the Left Side. We Will Also Treat with Muscle Relaxant and Some Phenergan. Patient later stated that the pain started more in the left flank and radiated down some get a CT scan to look for possible kidney stones. This scan revealed ureteritis and with her other symptoms are was some concern for pyelonephritis. She was started on IV antibiotics. She was also given some pain treatment, but was requesting admission for pain management and analgesia. We spoke with the hospitalist service agreed to admit the patient. Patient Is Allergic to Ibuprofen Which Prohibited the Use of Toradol. I agree with resident physician assessment and plan. ED Procedures. I reviewed the patient's EKG as well as the resident physician interpretation and I agree with the findings.
[2019-06-06] MEDS ORDERED: Orphenadrine 60 MG/2 ML VIAL IM ONE (11:33)
[2019-06-06] MEDS ORDERED: *HR* Promethazine 25 MG/ML VIAL IVP ONE (11:34)
[2019-06-06 11:45] LABS: Basophils % 0.2 %; Eosinophils # 0.4 K/mcL (0.0-0.6); Eosinophils % 3.9 %; Hematocrit 35.4 % (35.3-44.9); Hemoglobin 11.5 g/dL (11.5-15.4); Immature Granulocytes % 0.3 % (0-4); Lymphocytes # 2.3 K/mcL (0.6-4.6); Lymphocytes % 25.1 %; Mean Corpuscular HGB Conc 32.5 g/dL (31.6-35.5); Mean Corpuscular Hemoglobin 29.9 pg (28.0-33.3); Mean Corpuscular Volume 91.9 fL (83.0-100.0); Monocytes # 0.6 K/mcL (0.0-1.3); Monocytes % 6.8 %; Neutrophils # 5.8 K/mcL (1.6-8.9); Platelet Count 240 K/mcL (140-400); Red Blood Count 3.85 M/mcL (3.82-4.97); Red Cell Distribution Width 13.1 % (11.5-14.5); Segmented Neutrophils % 63.7 %; White Blood Count 9.2 K/mcL (4.3-11.1)
[2019-06-06 12:02] LABS: Alanine Aminotransferase 8 Units/L (7-52); Albumin 4.1 g/dL (3.5-5.7); Albumin/Globulin Ratio 1.2 (1.1-2.2); Alkaline Phosphatase 65 Units/L (34-104); Aspartate Amino Transferase 11 Units/L (13-39); BUN/Creatinine Ratio 9 (6-26); Bilirubin,Direct 0.1 mg/dL (0.0-0.2); Bilirubin,Indirect 0.2 mg/dL (0.0-1.2); Bilirubin,Total 0.3 mg/dL (0.3-1.0); Blood Urea Nitrogen 7 mg/dL (6-20); Calcium 9.1 mg/dL (8.6-10.3); Carbon Dioxide 27 mEq/L (23-29); Chloride 104 mEq/L (98-107); Globulin 3.5 g/dL (2.4-3.5); Glucose 98 mg/dL (70-105); Lipase 5 Units/L (11-82); Osmolality,Calculated 284 (280-300); Potassium 3.9 mEq/L (3.5-5.1); Sodium 138 mEq/L (136-145); Total Protein 7.6 g/dL (6.4-8.9); eGFR For African Americans > 60 (> 60); eGFR For Non-African Americans > 60 (> 60)
[2019-06-06 12:09] LABS: Bilirubin,Urine Negative (Negative); Blood,Urine Large (Negative); Clarity,Urine Clear (Clear); Color,Urine Yellow (Yellow); Glucose,Urine (UA) Normal (Normal); Ketones,Urine Negative (Negative); Leukocyte Esterase,Urine Negative (Negative); Nitrite,Urine Negative (Negative); Protein,Urine Negative (Neg-Trace); Specific Gravity,Urine 1.013 (1.010-1.025); Urobilinogen,Urine Normal (Normal)
[2019-06-06] MEDS ORDERED: *HR* FentaNYL (PF) 100 MCG/2 ML VIAL IVP ONE (12:11)
[2019-06-06 12:12] LABS: Bacteria,Urine None Seen per hpf (None-Few); Hyaline Casts,Urine None Seen per lpf (None-Few); RBC,Urine TNTC per hpf (0-3); Squamous Epithelial Cell,Urine Many per lpf (None-Few); WBC,Urine 0-3 per hpf (0-3)
[2019-06-06] MEDS ORDERED: cefTRIAXone 1,000 MG in Water for inj. (sterile) 10 ML IVP ONE (13:52)
[2019-06-06] MEDS ORDERED: *HR* HYDROmorphone (PF) 1 MG/ML SYRINGE IVP ONE ×2 (14:02→16:06)
[2019-06-06] MEDS ORDERED: Naloxone 0.4 MG/ML INJ IVP PRN (16:51)
[2019-06-06] MEDS ORDERED: *HR* FentaNYL (PF) 100 MCG/2 ML VIAL IVP PRN (16:55)
--- NOTE | 2019-06-06 16:59 | Internal Med History&Physical ---
Date of Encounter: 06/06/19 Time of Encounter: 16:59 Internal Medicine - H&P: HPI Chief complaint: Left flank pain Admitted From: Home Plans for Post Hospital Care: Home History of present illness: Ms. Henderson is a 44 year old female with past medical history of asthma, hypertension, migraine, anxiety, kidney stones, and pulmonary lung nodules (scheduled for lung biopsy in a week as outpatient). She presented with today's history of severe left flank pain. She said the pain started suddenly yesterday afternoon with a grade 10 out of 10, previously her groin when she is urinating and occasionally worsens with deep inspiration. Pain also was associated with bloody urine, an episode of vomiting,fever and chills last night. Patient thought she had pyelonephritis because this is how she felt when she got sick w ith pyelonephritis. She denies dysuria but admits frequency. Past Med Surg Social Fam HX - Past Medical History Medical history: asthma, hypertension, kidney stones, migraine, renal disease, other Additional medical history: rectal prolapse Psychiatric history: anxiety - Past Surgical History Surgical History: cholecystectomy, hysterectomy Additional surgical history: ACL R knee - Social History Smoking Status: Former smoker Smokeless Tobacco Status: No Alcohol use: none Drug use: none, marijuana - Family History Father Living Status: Still Living Hx Family Genitourinary Disorders: Yes (Recurrent kidney stones) Mother Living Status: Still Living Hx Family Cancer: Yes (breast cancer) Internal Medicine - H&P: Meds Estradiol [Estrace] 1 mg PO DAILY 10/24/15 [History] Albuterol Sulfate [Proventil Inhaler] 2 puff IH Q6H PRN 12/12/17 [History] Lisinopril/Hydrochlorothiazide [Zestoretic 20-25 mg Tablet] 1 each PO DAILY 12/12/17 [History] Depakote 1,000 mg PO HS 05/01/19 [History] Oxycodone HCl/Acetaminophen [Percocet 5-325 mg Tablet] 1 each PO Q6HR PRN 3 Days #12 tablet 05/01/19 [Rx] predniSONE [PredniSONE] 40 mg PO DAILY 5 Days #10 tablet 05/01/19 [Rx] OxyCODONE/APAP 5/325 [Percocet 5/325 MG] 1 each PO Q8HR PRN 3 Days #8 tablet 05/14/19 [Rx] Morphine Sulfate Immed Rel [Morphine Sulfate] 15 mg PO Q6HR PRN 4 Days #12 tab 06/06/19 [Rx] cephALEXin [Keflex] 500 mg PO TID 7 Days #21 capsule 06/06/19 [Rx] Allergy/AdvReac Type Severity Reaction Status Date / Time codeine Allergy Itching Verified 08/22/18 15:35 diphenhydramine Allergy See Verified 08/22/18 15:35 [From Benadryl] Comments hydrocodone [From Vicodin] Allergy Itching Verified 08/22/18 15:35 ibuprofen Allergy See Verified 08/22/18 15:35 Comments latex AdvReac Rash Verified 08/22/18 15:35 All Systems PM: A 10-system review of systems was performed and is negative for pertinent findings except as documented above in the HPI. Review of systems: GENERAL: Admits fever and chills HEENT: No rhinorrhea, No sore throat, No ear pain or discharge, No dysphagia or odynophagia PULMONARY: No cough, No chest pain, No Sputum production, No dyspnea on exertion CARDIOVASCULAR: No chest pain, no palpitations, No shortness of breath, No PND, No orthopnea GASTROINTESTINAL: No abdominal pain, No nausea, episode of vomiting last night,No constipation, No diarrhea, No hematemesis, No hematochezia GENITOURINARY: Admits frequency but denies dysuria MUSKULOSKELETAL: No edema, No swelling, No pain INTEGUMENTARY: No new skin lesions NERVOUS SYSTEM: No Dizziness, No weakness, No slurred speech, No diplopia or blurred/ loss vision, No numbness, No tinglng sensation. - Constitutional Vitals: Temp Pulse Resp BP Pulse Ox 37.7 C H 96 12 110/67 98 06/06/19 11:10 06/06/19 13:27 06/06/19 13:27 06/06/19 13:27 06/06/19 13:27 Exam: GENERAL: In moderate distress. Alert and Oriented HEENT: EOMI, PERRLA MOUTH:Moist oral mucosa NECK:No JVD, No lymph nodes. CHEST AND LUNGS: Normal breath sounds, no wheezes or crackles HEART: S1 and S2 normal, no murmurs ABDOMEN: Soft, nontender, no organomegaly, Left CVA tenderness. SKIN: Normal color, no rashes, no lesions EXTREMITIES: No deformity, no edema, no tenderness, no joint swelling or clubbing NEUROLOGICAL: Normal cognition, normal motor and sensory exam. Internal Med - H&P Results - Labs CBC & Chem 7: 06/06/19 11:35 06/06/19 11:35 Labs: Short CBC 06/06/19 Range/Units 11:35 WBC 9.2 (4.3-11.1) K/mcL Hgb 11.5 (11.5-15.4) g/dL Hct 35.4 (35.3-44.9) % Plt Count 240 (140-400) K/mcL Neutrophils # 5.8 (1.6-8.9) K/mcL BMP 06/06/19 11:35 Sodium 138 Potassium 3.9 Chloride 104 Carbon Dioxide 27 BUN 7 Creatinine 0.77 Glucose 98 Calcium 9.1 Liver Function 06/06/19 Range/Units 11:35 Total Bilirubin 0.3 (0.3-1.0) mg/dL Direct Bilirubin 0.1 (0.0-0.2) mg/dL AST 11 L (13-39) Units/L ALT 8 (7-52) Units/L Alkaline Phosphatase 65 (34-104) Units/L Albumin 4.1 (3.5-5.7) g/dL Urine 06/06/19 Range/Units 11:40 Urine Color Yellow (Yellow) Urine Clarity Clear (Clear) Urine pH 6.0 (5.0-8.0) pH Units Ur Specific [place] 1.013 (1.010-1.025) Urine Protein Negative (Neg-Trace) mg/dL Urine Glucose (UA) Normal (Normal) mg/dL - Impressions ITS Impressions Chest X-Ray 06/06/19 11:22 IMPRESSION: No acute cardiopulmonary disease. Multiple bilateral pulmonary nodules consistent with metastatic disease as noted on recent PET-CT. No acute osseous abnormality of the left ribs. D/ / Felipe Johnson MD / Felipe Johnson MD Interpreting Provider: Felipe Johnson MD Ribs X-Ray 06/06/19 11:40 IMPRESSION: No acute cardiopulmonary disease. Multiple bilateral pulmonary nodules consistent with metastatic disease as noted on recent PET-CT. No acute osseous abnormality of the left ribs. D/ / Felipe Johnson MD / Felipe Johnson MD Interpreting Provider: Felipe Johnson MD Abdomen/Pelvis CT 06/06/19 12:11 IMPRESSION: 1. Gas in the urinary bladder may be due to cystitis. This is a new finding compared to PET-CT from 06/02/2019. Additionally, there is left urothelial thickening raising the possibility for ureteritis. Correlation with urinalysis is recommended. 2. Left nephrolithiasis. No left ureteral calculi. 3. Lung bases again demonstrate multiple noncalcified lung nodules, suspicious for pulmonary metastatic disease or infectious/inflammatory process. D/ / 06/06/2019 13:22:23 Becca Jacobsen MD / isela Interpreting Provider: Becca Jacobsen MD - Assessment and Plan (1) Ureterolithiasis Current Visit: Yes Status: Acute (2) Hydronephrosis, left Current Visit: Yes Status: Acute Assessment and plan: I reviewed CT scan myself. There is some hydronephrosis on the left side with associated hydroureter Multiple ureterolithiasis also observed both on right and left sides. UA significant for too numerous to count red blood cells We will hydrate patient Given adequate analgesia Urology consulted in the ER (3) Urinary tract infection Current Visit: No Status: Resolved Assessment and plan: UA not consistent with a UTI Urine might however look bland in patients with ureteric obstruction even in the presence of a urinary tract infection Patient however had fever and chills last night and presented with a temperature of 37.7 IV ceftriaxone started in the ER We will continue antibiotics Will await urine cultures Qualifiers: Urinary tract infection type: acute cystitis Hematuria presence: with hematuria Qualified Code(s): N30.01 - Acute cystitis with hematuria (4) Pulmonary nodules/lesions, multiple Current Visit: Yes Status: Acute Assessment and plan: Patient is scheduled for an outpatient lung biopsy in a week Lesions are stable per CT report (5) Hematuria Current Visit: No Status: Acute Assessment and plan: Patient had gross hematuria last night Currently has too numerous to count RBCs in the urine Most likely associated with ureteric stones We will continue to hydrate Urology consulted Qualifiers: Hematuria type: unspecified type Qualified Code(s): R31.9 - Hematuria, unspecified (6) Hypertension Current Visit: No Status: Chronic Assessment and plan: Resume home meds Qualifiers: Hypertension type: essential hypertension Qualified Code(s): I10 - Essential (primary) hypertension (7) DVT prophylaxis Current Visit: Yes Status: Acute Assessment and plan: Subcutaneous heparin - Time Spent With Patient Total time spent is greater than 50% in coordination of care (as documented) at patient's floor/unit and/or counseling patient:
[2019-06-06] MEDS ORDERED: Ondansetron 4 MG/2 ML VIAL IVP STA (20:51)
[2019-06-06] MEDS ORDERED: *HR* HYDROmorphone 2 MG TABLET PO PRN (21:55)
[2019-06-06] MEDS: 0.9 % Sodium Chloride 1,000 ML IVC SCH (22:06)
[2019-06-06] MEDS: *HR* Promethazine 25 MG/ML VIAL IVP PRN (22:07)
[2019-06-06] MEDS: Divalproex (12 HR) 500 MG TABLET PO SCH (22:12)
[2019-06-06] MEDS: ALPRAZolam 0.5 MG TABLET PO PRN (22:15)
[2019-06-07] MEDS: *HR* HYDROmorphone (PF) 1 MG/ML SYRINGE IVP PRN ×10 (02:06→23:50)
[2019-06-07 05:46] LABS: Basophils % 0.4 %; Eosinophils # 0.3 K/mcL (0.0-0.6); Eosinophils % 3.4 %; Hematocrit 31.4 % (35.3-44.9); Hemoglobin 10.1 g/dL (11.5-15.4); Immature Granulocytes % 0.4 % (0-4); Lymphocytes # 2.4 K/mcL (0.6-4.6); Lymphocytes % 29.8 %; Mean Corpuscular HGB Conc 32.2 g/dL (31.6-35.5); Mean Corpuscular Hemoglobin 29.6 pg (28.0-33.3); Mean Corpuscular Volume 92.1 fL (83.0-100.0); Mean Platelet Volume 9.4 fL (9.4-12.4); Monocytes # 0.7 K/mcL (0.0-1.3); Monocytes % 8.2 %; Neutrophils # 4.6 K/mcL (1.6-8.9); Platelet Count 215 K/mcL (140-400); Red Blood Count 3.41 M/mcL (3.82-4.97); Red Cell Distribution Width 13.2 % (11.5-14.5); Segmented Neutrophils % 57.8 %; White Blood Count 7.9 K/mcL (4.3-11.1)
[2019-06-07 06:11] LABS: BUN/Creatinine Ratio 9 (6-26); Blood Urea Nitrogen 7 mg/dL (6-20); Calcium 8.5 mg/dL (8.6-10.3); Carbon Dioxide 29 mEq/L (23-29); Chloride 105 mEq/L (98-107); Glucose 100 mg/dL (70-105); Osmolality,Calculated 290 (280-300); Potassium 3.9 mEq/L (3.5-5.1); Sodium 141 mEq/L (136-145); eGFR For African Americans > 60 (> 60); eGFR For Non-African Americans > 60 (> 60)
[2019-06-07] MEDS: *HR* Promethazine 25 MG/ML VIAL IVP PRN ×3 (06:43→22:46)
[2019-06-07] MEDS: 0.9 % Sodium Chloride 1,000 ML IVC SCH (06:44)
--- NOTE | 2019-06-07 09:47 | Internal Med Progress Note ---
Hospitalist Progress Note - Encounter Date of Encounter: 06/07/19 Time of Encounter: 09:45 - Subjective Interval History: No acute events overnight. Patient continues to complain of flank pain. Denies fever, chills, nausea and vomiting. - Exam Vitals: Temp Pulse Resp BP Pulse Ox 37.2 C 79 15 103/65 97 06/07/19 06:22 06/07/19 06:22 06/07/19 06:22 06/07/19 06:22 06/07/19 06:22 Exam: GENERAL: In moderate distress. Alert and Oriented HEENT: EOMI, PERRLA MOUTH:Moist oral mucosa NECK:No JVD, No lymph nodes. CHEST AND LUNGS: Normal breath sounds, no wheezes or crackles HEART: S1 and S2 normal, no murmurs ABDOMEN: Soft, nontender, no organomegaly, Left CVA tenderness. SKIN: Normal color, no rashes, no lesions EXTREMITIES: No deformity, no edema, no tenderness, no joint swelling or clubbing NEUROLOGICAL: Normal cognition, normal motor and sensory exam. - Assessment and Plan (1) Hydronephrosis, left Current Visit: Yes Status: Acute Assessment and Plan: I reviewed CT scan myself. There is some hydronephrosis on the left side with associated hydroureter Multiple ureterolithiasis also observed both on right and left sides. UA significant for too numerous to count red blood cells Awaiting urology review Continue hydration and analgesia. (2) Ureterolithiasis Current Visit: Yes Status: Acute Assessment and Plan: As described above. (3) Urinary tract infection Current Visit: No Status: Resolved Assessment and Plan: UA not consistent with a UTI Urine might however look bland in patients with ureteric obstruction even in the presence of a urinary tract infection Patient however had fever and chills last night and presented with a temperature of 37.7 IV ceftriaxone started in the ER We will continue antibiotics Still waiting for sample for culture. Patient barely made urine last night. Will order a bladder scan. (4) Pulmonary nodules/lesions, multiple Current Visit: Yes Status: Acute Assessment and Plan: Patient is scheduled for an outpatient lung biopsy in a week Lesions are stable per CT report (5) Hematuria Current Visit: No Status: Acute Assessment and Plan: Patient had gross hematuria last night Currently has too numerous to count RBCs in the urine Most likely associated with ureteric stones We will continue to hydrate Urology consulted (6) Hypertension Current Visit: No Status: Chronic Assessment and Plan: on home meds (7) DVT prophylaxis Current Visit: Yes Status: Acute Assessment and Plan: Subcutaneous heparin - Time Spent with Patient Total time spent is greater than 50% in coordination of care (as documented) at patient's floor/unit and/or counseling patient: Internal Medicine: Result - Labs CBC & Chem 7: 06/07/19 04:57 06/07/19 04:57 Labs: Short CBC 06/06/19 06/07/19 Range/Units 11:35 04:57 WBC 9.2 7.9 (4.3-11.1) K/mcL Hgb 11.5 10.1 L (11.5-15.4) g/dL Hct 35.4 31.4 L (35.3-44.9) % Plt Count 240 215 (140-400) K/mcL Neutrophils # 5.8 4.6 (1.6-8.9) K/mcL BMP 06/06/19 06/07/19 11:35 04:57 Sodium 138 141 Potassium 3.9 3.9 Chloride 104 105 Carbon Dioxide 27 29 BUN 7 7 Creatinine 0.77 0.75 Glucose 98 100 Calcium 9.1 8.5 L Liver Function 06/06/19 Range/Units 11:35 Total Bilirubin 0.3 (0.3-1.0) mg/dL Direct Bilirubin 0.1 (0.0-0.2) mg/dL AST 11 L (13-39) Units/L ALT 8 (7-52) Units/L Alkaline Phosphatase 65 (34-104) Units/L Albumin 4.1 (3.5-5.7) g/dL Urine 06/06/19 Range/Units 11:40 Urine Color Yellow (Yellow) Urine Clarity Clear (Clear) Urine pH 6.0 (5.0-8.0) pH Units Ur Specific [place] 1.013 (1.010-1.025) Urine Protein Negative (Neg-Trace) mg/dL Urine Glucose (UA) Normal (Normal) mg/dL - Impressions Impressions Chest X-Ray 06/06/19 11:22 IMPRESSION: No acute cardiopulmonary disease. Multiple bilateral pulmonary nodules consistent with metastatic disease as noted on recent PET-CT. No acute osseous abnormality of the left ribs. D/ / Felipe Johnson MD / Felipe Johnson MD Interpreting Provider: Felipe Johnson MD Ribs X-Ray 06/06/19 11:40 IMPRESSION: No acute cardiopulmonary disease. Multiple bilateral pulmonary nodules consistent with metastatic disease as noted on recent PET-CT. No acute osseous abnormality of the left ribs. D/ / Felipe Johnson MD / Felipe Johnson MD Interpreting Provider: Felipe Johnson MD Abdomen/Pelvis CT 06/06/19 12:11 IMPRESSION: 1. Gas in the urinary bladder may be due to cystitis. This is a new finding compared to PET-CT from 06/02/2019. Additionally, there is left urothelial thickening raising the possibility for ureteritis. Correlation with urinalysis is recommended. 2. Left nephrolithiasis. No left ureteral calculi. 3. Lung bases again demonstrate multiple noncalcified lung nodules, suspicious for pulmonary metastatic disease or infectious/inflammatory process. D/ / 06/06/2019 13:22:23 Becca Jacobsen MD / isela Interpreting Provider: Becca Jacobsen MD Consult Discharge Plan - Plan Referrals: Roderick Moran MD [Primary Care Provider] - (3) Urinary tract infection Qualifiers: Urinary tract infection type: acute cystitis Hematuria presence: with hematuria Qualified Code(s): N30.01 - Acute cystitis with hematuria (5) Hematuria Qualifiers: Hematuria type: unspecified type Qualified Code(s): R31.9 - Hematuria, unspecified (6) Hypertension Qualifiers: Hypertension type: essential hypertension Qualified Code(s): I10 - Essential (primary) hypertension
[2019-06-07] MEDS: cefTRIAXone 2,000 MG in Water for inj. (sterile) 20 ML IVP SCH (14:05)
[2019-06-07] MEDS: *HR* Heparin 5,000 UNIT/ML VIAL SQ SCH (16:58)
--- NOTE | 2019-06-07 18:10 | Urology - Consult Note ---
Date of Encounter: 06/07/19 Time of Encounter: 18:08 - Assessment and Plan (1) Left renal stone Current Visit: Yes Status: Acute Assessment and plan: Patient stones are currently very small and nonobstructing. I do not believe t hat these are contributing to the patient's discomfort at this time. No indication for urgent treatment. (2) Pneumaturia Current Visit: Yes Status: Acute Assessment and plan: Awaiting urine culture at this time. No recent instrumentation. Likely related to UTI. Continue with broad-spectrum antimicrobial coverage until cultures return. (3) Hydronephrosis, left Current Visit: Yes Status: Acute Assessment and plan: Patient with very mild left hydronephrosis which appears to be stable. Patient will likely require left diagnostic ureteroscopy after discharge. (4) Hematuria Current Visit: No Status: Acute Assessment and plan: Unsure of etiology of hematuria at this time. Patient did undergo cystoscopy 2 years ago. Upon review of the patient's many urinalyses the majority of the time she has microscopic hematuria. Qualifiers: Hematuria type: unspecified type Qualified Code(s): R31.9 - Hematuria, unspecified (5) Urinary tract infection Current Visit: No Status: Resolved Assessment and plan: Continue with broad-spectrum antimicrobial coverage until cultures return. Likely cause of hematuria at this time. Qualifiers: Urinary tract infection type: acute cystitis Hematuria presence: with hematuria Qualified Code(s): N30.01 - Acute cystitis with hematuria Urology CN:HPI Consult date: 06/07/19 Reason for consult Urology: Hydronephrosis Requesting physician: Barbi Beebe History of present illness: Meaghan is a 44-year-old female well-known to me secondary to recurrent kidney stones. Patient last evaluated 2 years ago. Patient now presents to the hospital secondary to left lower chest discomfort which she states is worsening with breathing. Patient states that she has passed multiple kidney stones since our last evaluation. CT abdomen and pelvis done upon arrival to the hospital revealed nonobstructing left kidney stones as well as some mild dilatation of her left ureter with a small air bubble in her bladder. Patient denies any recent catheterization. Urinalysis positive for blood with culture pending. Patient denies significant dysuria. Patient is very emotional about her lung nodule diagnosis. Significant anxiety regarding this. Patient states her pain is currently a 3-4 out of 10 sharp in nature located in her left lower lung. Past Med Surg Social Fam HX - Past Medical History Medical history: asthma, hypertension, kidney stones, migraine, renal disease, other Additional medical history: rectal prolapse Psychiatric history: anxiety - Past Surgical History Surgical History: cholecystectomy, hysterectomy Additional surgical history: ACL R knee - Social History Smoking Status: Former smoker Smokeless Tobacco Status: No Alcohol use: none Drug use: marijuana - Family History Father Living Status: Still Living Hx Family Cancer: Yes (breast cancer) Hx Family Genitourinary Disorders: Yes (Recurrent kidney stones) Mother Living Status: Still Living Hx Family Cancer: Yes (breast cancer) Medications and Allergies Estradiol [Estrace] 2 mg PO HS 10/24/15 [History] Albuterol Sulfate [Proventil Inhaler] 2 puff IH Q6H PRN 12/12/17 [History] Divalproex (12 HR) [Depakote (12 HR)] 1,000 mg PO HS 05/01/19 [History] ALPRAZolam [Xanax 0.5 MG Tablet] 0.5 mg PO HS PRN 06/06/19 [History] Morphine Sulfate Immed Rel [Morphine Sulfate] 15 mg PO Q6HR PRN 4 Days #12 tab 06/06/19 [Rx] cephALEXin [Keflex] 500 mg PO TID 7 Days #21 capsule 06/06/19 [Rx] Folic Acid 1 mg PO HS 06/07/19 [History] Lisinopril/Hydrochlorothiazide [Zestoretic 10-12.5 mg Tablet] 1 tab PO HS 06/07/19 [History] Allergy/AdvReac Type Severity Reaction Status Date / Time codeine Allergy Itching Verified 06/07/19 08:43 diphenhydramine Allergy See Verified 06/07/19 08:43 [From Benadryl] Comments hydrocodone [From Vicodin] Allergy Itching Verified 06/07/19 08:43 ibuprofen AdvReac Gastrointestinal Verified 06/07/19 08:43 Upset latex AdvReac Rash Verified 06/07/19 08:43 Review of Systems - Constitutional no chills, no fever(s) - EENT Nose, mouth and throat: no dizziness - Cardiovascular no chest pain - Respiratory no cough - Gastrointestinal no abdominal pain, no nausea, no vomiting - Genitourinary Genitourinary: as per HPI - Musculoskeletal back pain - Integumentary no swelling, no unusual bruising - Neurological no sensory deficit, no syncope - Psychiatric no depression - Hematologic/Lymphatic no easy bruising, no lymphadenopathy - Allergic/Immunologic no wheezing Exam Initial Vital Signs Temp Pulse Resp BP Pulse Ox 99.8 F H 114 20 117/79 97 06/06/19 11:10 06/06/19 11:10 06/06/19 11:10 06/06/19 11:10 06/06/19 11:10 General/Neuological: alert and oriented x 3 Eyes: normal pupils, non-icteric Neck: no lymphadenopathy noted, supple to touch Cardiovascular: RRR, no murmurs, no JVD Respiratory: normal respiratory effort, clear bilaterally, no wheezing ABD: soft, nontender, no masses palpated, good bowel sounds Back: no pain on percussion bilaterally Skin: no rashes noted Musculoskeletal: normal gait, FROMx4 Urology Results - Labs 06/07/19 04:57 06/07/19 04:57 Abnormal lab results RBC 3.41 M/mcL (3.82-4.97) L 06/07/19 04:57 Hgb 10.1 g/dL (11.5-15.4) L 06/07/19 04:57 Hct 31.4 % (35.3-44.9) L 06/07/19 04:57 MPV 9.0 fL (9.4-12.4) L 06/06/19 11:35 Calcium 8.5 mg/dL (8.6-10.3) L 06/07/19 04:57 AST 11 Units/L (13-39) L 06/06/19 11:35 Lipase 5 Units/L (11-82) L 06/06/19 11:35 Urine Blood Large (Negative) H 06/06/19 11:40 Urine Microscopic RBC TNTC per hpf (0-3) H 06/06/19 11:40 Ur Squamous Epith Cells Many per lpf (None-Few) H 06/06/19 11:40 Diabetes panel 06/07/19 Range/Units 04:57 Sodium 141 (136-145) mEq/L Potassium 3.9 (3.5-5.1) mEq/L Chloride 105 (98-107) mEq/L Carbon Dioxide 29 (23-29) mEq/L BUN 7 (6-20) mg/dL Creatinine 0.75 (0.60-1.20) mg/dL Glucose 100 (70-105) mg/dL Calcium 8.5 L (8.6-10.3) mg/dL Calcium panel 06/07/19 Range/Units 04:57 Calcium 8.5 L (8.6-10.3) mg/dL Pituitary panel 06/07/19 Range/Units 04:57 Sodium 141 (136-145) mEq/L Potassium 3.9 (3.5-5.1) mEq/L Chloride 105 (98-107) mEq/L Carbon Dioxide 29 (23-29) mEq/L BUN 7 (6-20) mg/dL Creatinine 0.75 (0.60-1.20) mg/dL Glucose 100 (70-105) mg/dL Calcium 8.5 L (8.6-10.3) mg/dL Adrenal panel 06/07/19 Range/Units 04:57 Sodium 141 (136-145) mEq/L Potassium 3.9 (3.5-5.1) mEq/L Chloride 105 (98-107) mEq/L Carbon Dioxide 29 (23-29) mEq/L BUN 7 (6-20) mg/dL Creatinine 0.75 (0.60-1.20) mg/dL Glucose 100 (70-105) mg/dL Calcium 8.5 L (8.6-10.3) mg/dL All other labs normal. - Imaging CT scan - abdomen: image reviewed CT scan - pelvis: image reviewed (I personally reviewed the patient's CT scan. No ureteral stones were visualized on either side. Patient with small left sided renal stones.) Consult Discharge Plan - Plan Referrals: Roderick Moran MD [Primary Care Provider] -
[2019-06-07] MEDS: ALPRAZolam 0.5 MG TABLET PO PRN (19:53)
[2019-06-07] MEDS: Divalproex (12 HR) 500 MG TABLET PO SCH (19:53)
--- NOTE | 2019-06-08 00:15 | Electrocardiograph Report ---
[facility] Test Date: 2019-06-06 Pat Name: Meaghan Henderson Department: EXAM9 Room: 3A47 Gender: F [employer] Specialist: : [id number] Requested By: Wes Sargent Order Number: [id number] Reading MD: Madiha Gilbert Measurements Intervals [place] Rate: 93 P: 74 NH: 121 QRS: 91 QRSD: 104 T: 55 QT: 368 QTc: 458 Interpretive Statements Sinus rhythm Atrial premature complex Borderline right axis deviation Electronically Signed On 06-08-2019 0:13:41 EDT by Madiha Gilbert
[2019-06-08] MEDS: *HR* HYDROmorphone (PF) 1 MG/ML SYRINGE IVP PRN ×7 (02:30→20:05)
[2019-06-08] MEDS: *HR* Heparin 5,000 UNIT/ML VIAL SQ SCH ×2 (05:02→17:56)
[2019-06-08 06:23] LABS: Basophils % 0.3 %; Eosinophils # 0.3 K/mcL (0.0-0.6); Eosinophils % 3.6 %; Hematocrit 31.2 % (35.3-44.9); Hemoglobin 10.2 g/dL (11.5-15.4); Immature Granulocytes % 0.3 % (0-4); Lymphocytes # 2.4 K/mcL (0.6-4.6); Lymphocytes % 33.3 %; Mean Corpuscular HGB Conc 32.7 g/dL (31.6-35.5); Mean Corpuscular Hemoglobin 29.7 pg (28.0-33.3); Monocytes # 0.5 K/mcL (0.0-1.3); Neutrophils # 4.1 K/mcL (1.6-8.9); Platelet Count 213 K/mcL (140-400); Red Blood Count 3.43 M/mcL (3.82-4.97); Red Cell Distribution Width 12.9 % (11.5-14.5); Segmented Neutrophils % 55.5 %; White Blood Count 7.3 K/mcL (4.3-11.1)
[2019-06-08 06:45] LABS: BUN/Creatinine Ratio 12 (6-26); Blood Urea Nitrogen 8 mg/dL (6-20); Carbon Dioxide 29 mEq/L (23-29); Chloride 102 mEq/L (98-107); Glucose 120 mg/dL (70-105); Osmolality,Calculated 288 (280-300); Sodium 139 mEq/L (136-145); eGFR For African Americans > 60 (> 60); eGFR For Non-African Americans > 60 (> 60)
[2019-06-08] MEDS: *HR* Promethazine 25 MG/ML VIAL IVP PRN ×2 (08:52→20:04)
--- NOTE | 2019-06-08 11:24 | Urology Progress Note ---
<Gisel Irby N - Last Filed: 06/08/19 11:21> Date of Encounter: 06/08/19 Time of Encounter: 09:10 - Assessment and Plan (1) Hydronephrosis, left Current Visit: Yes Status: Acute (2) Left renal stone Current Visit: Yes Status: Acute (3) Bladder pain Current Visit: No Status: Acute Assessment and plan: Patient is a 44-year-old female who presents with a left renal stone and concern for either in the bladder on CAT scan. Urine culture is negative at this time. Patient will likely require stone extraction and diagnostic ureteroscopy as an outpatient. Dr. Flores will be in to reevaluate patient this afternoon. Progress Note Narrative: Patient seen and examined sitting upright in bed eating breakfast. Patient reports continued bilateral flank pain. Patient admits to some dysuria, but she denies any gross hematuria, fever or chills. Objective Initial Vital Signs Temp Pulse Resp BP Pulse Ox 99.8 F H 114 20 117/79 97 06/06/19 11:10 06/06/19 11:10 06/06/19 11:10 06/06/19 11:10 06/06/19 11:10 - General physical appearance Present: no distress, no pain - Respiratory Present: normal expansion, normal respiratory effort - Abdomen Present: soft, non tender. Absent: distended - Integumentary Present: no rash, no abnormal pigmentation - Musculoskeletal Present: normal posture - Psychiatric Present: oriented to time, oriented to person, oriented to place, speech is normal, memory intact - Labs 06/08/19 06:03 06/08/19 06:03 Diabetes panel 06/08/19 Range/Units 06:03 Sodium 139 (136-145) mEq/L Potassium 4.0 (3.5-5.1) mEq/L Chloride 102 (98-107) mEq/L Carbon Dioxide 29 (23-29) mEq/L BUN 8 (6-20) mg/dL Creatinine 0.66 (0.60-1.20) mg/dL Glucose 120 H (70-105) mg/dL Calcium 9.0 (8.6-10.3) mg/dL Calcium panel 06/08/19 Range/Units 06:03 Calcium 9.0 (8.6-10.3) mg/dL Pituitary panel 06/08/19 Range/Units 06:03 Sodium 139 (136-145) mEq/L Potassium 4.0 (3.5-5.1) mEq/L Chloride 102 (98-107) mEq/L Carbon Dioxide 29 (23-29) mEq/L BUN 8 (6-20) mg/dL Creatinine 0.66 (0.60-1.20) mg/dL Glucose 120 H (70-105) mg/dL Calcium 9.0 (8.6-10.3) mg/dL Adrenal panel 06/08/19 Range/Units 06:03 Sodium 139 (136-145) mEq/L Potassium 4.0 (3.5-5.1) mEq/L Chloride 102 (98-107) mEq/L Carbon Dioxide 29 (23-29) mEq/L BUN 8 (6-20) mg/dL Creatinine 0.66 (0.60-1.20) mg/dL Glucose 120 H (70-105) mg/dL Calcium 9.0 (8.6-10.3) mg/dL Consult Discharge Plan - Plan Referrals: Roderick Moran MD [Primary Care Provider] - <López Flores - Last Filed: 06/08/19 17:59> Date of Encounter: 06/08/19 - Assessment and Plan (1) Left renal stone Current Visit: Yes Status: Acute (2) Pneumaturia Current Visit: Yes Status: Acute (3) Hydronephrosis, left Current Visit: Yes Status: Acute (4) Hematuria Current Visit: No Status: Acute Qualifiers: Hematuria type: unspecified type Qualified Code(s): R31.9 - Hematuria, unspecified (5) Urinary tract infection Current Visit: No Status: Resolved Qualifiers: Urinary tract infection type: acute cystitis Hematuria presence: with hematuria Qualified Code(s): N30.01 - Acute cystitis with hematuria Progress Note Narrative: Patient was seen and examined independently. I agree with the plan as written by Gisel Irby. Patient with vague discomfort. Urine culture negative. Patient will be scheduled for follow-up on June 23 at 9:15 in my office in [place]. Please call with any questions. Objective Initial Vital Signs Temp Pulse Resp BP Pulse Ox 99.8 F H 114 20 117/79 97 06/06/19 11:10 06/06/19 11:10 06/06/19 11:10 06/06/19 11:10 06/06/19 11:10 - Labs 06/08/19 06:03 06/08/19 06:03 Diabetes panel 06/08/19 Range/Units 06:03 Sodium 139 (136-145) mEq/L Potassium 4.0 (3.5-5.1) mEq/L Chloride 102 (98-107) mEq/L Carbon Dioxide 29 (23-29) mEq/L BUN 8 (6-20) mg/dL Creatinine 0.66 (0.60-1.20) mg/dL Glucose 120 H (70-105) mg/dL Calcium 9.0 (8.6-10.3) mg/dL Calcium panel 06/08/19 Range/Units 06:03 Calcium 9.0 (8.6-10.3) mg/dL Pituitary panel 06/08/19 Range/Units 06:03 Sodium 139 (136-145) mEq/L Potassium 4.0 (3.5-5.1) mEq/L Chloride 102 (98-107) mEq/L Carbon Dioxide 29 (23-29) mEq/L BUN 8 (6-20) mg/dL Creatinine 0.66 (0.60-1.20) mg/dL Glucose 120 H (70-105) mg/dL Calcium 9.0 (8.6-10.3) mg/dL Adrenal panel 06/08/19 Range/Units 06:03 Sodium 139 (136-145) mEq/L Potassium 4.0 (3.5-5.1) mEq/L Chloride 102 (98-107) mEq/L Carbon Dioxide 29 (23-29) mEq/L BUN 8 (6-20) mg/dL Creatinine 0.66 (0.60-1.20) mg/dL Glucose 120 H (70-105) mg/dL Calcium 9.0 (8.6-10.3) mg/dL
--- NOTE | 2019-06-08 12:40 | Internal Med Progress Note ---
Hospitalist Progress Note - Encounter Date of Encounter: 06/08/19 Time of Encounter: 08:23 - Subjective Interval History: No acute events overnight. Patient continues to report left flak pain. She denies fever, chills, nausea and vomiting. - Exam Vitals: Temp Pulse Resp BP Pulse Ox 36.5 C 96 16 111/76 97 06/08/19 10:38 06/08/19 10:38 06/08/19 10:38 06/08/19 10:38 06/08/19 10:38 Exam: GENERAL: Not in distress. Alert and Oriented HEENT: EOMI, PERRLA MOUTH:Moist oral mucosa NECK:No JVD, No lymph nodes. CHEST AND LUNGS: Normal breath sounds, no wheezes or crackles HEART: S1 and S2 normal, no murmurs ABDOMEN: Soft, nontender, no organomegaly, mild Left CVA tenderness. SKIN: Normal color, no rashes, no lesions EXTREMITIES: No deformity, no edema, no tenderness, no joint swelling or clubbing NEUROLOGICAL: Normal cognition, normal motor and sensory exam. - Assessment and Plan (1) Hydronephrosis, left Current Visit: Yes Status: Acute Assessment and Plan: Urology following. Urology attending plans to see pt this afternoon. For possible diagnostic ureteroscopy and possible stone extraction as outpatient. Will continue analgesia and IVF. (2) Ureterolithiasis Current Visit: Yes Status: Acute Assessment and Plan: As described above. (3) Urinary tract infection Current Visit: No Status: Resolved Assessment and Plan: Urine culture negative. Will discontinue IV antibiotics. (4) Pulmonary nodules/lesions, multiple Current Visit: Yes Status: Acute Assessment and Plan: Patient is scheduled for an outpatient lung biopsy in a week Lesions are stable per CT report (5) Hematuria Current Visit: No Status: Acute Assessment and Plan: No gross hematuria since admission Urology on board. Patient will likely require stone extraction and diagnostic ureterscopy as outpatient. Will be reevaluated by urology attending this afternoon. (6) Hypertension Current Visit: No Status: Chronic Assessment and Plan: on home meds (7) DVT prophylaxis Current Visit: Yes Status: Acute Assessment and Plan: Subcutaneous heparin - Time Spent with Patient Total time spent is greater than 50% in coordination of care (as documented) at patient's floor/unit and/or counseling patient: Internal Medicine: Result - Labs CBC & Chem 7: 06/08/19 06:03 06/08/19 06:03 Labs: Short CBC 06/08/19 Range/Units 06:03 WBC 7.3 (4.3-11.1) K/mcL Hgb 10.2 L (11.5-15.4) g/dL Hct 31.2 L (35.3-44.9) % Plt Count 213 (140-400) K/mcL Neutrophils # 4.1 (1.6-8.9) K/mcL BMP 06/08/19 06:03 Sodium 139 Potassium 4.0 Chloride 102 Carbon Dioxide 29 BUN 8 Creatinine 0.66 Glucose 120 H Calcium 9.0 Consult Discharge Plan - Plan Referrals: Roderick Moran MD [Primary Care Provider] - (3) Urinary tract infection Qualifiers: Urinary tract infection type: acute cystitis Hematuria presence: with hematuria Qualified Code(s): N30.01 - Acute cystitis with hematuria (5) Hematuria Qualifiers: Hematuria type: unspecified type Qualified Code(s): R31.9 - Hematuria, unspecified (6) Hypertension Qualifiers: Hypertension type: essential hypertension Qualified Code(s): I10 - Essential (primary) hypertension
[2019-06-08] MEDS: cefTRIAXone 2,000 MG in Water for inj. (sterile) 20 ML IVP SCH (12:48)
[2019-06-08] MEDS ORDERED: ALPRAZolam 0.5 MG TABLET PO PRN (13:31)
[2019-06-08] MEDS ORDERED: *HR* HYDROmorphone (PF) 1 MG/ML SYRINGE IVP PRN (13:32)
[2019-06-08] MEDS: *HR* OxyCODONE/APAP 5/325 TABLET PO PRN ×3 (15:05→23:04)
[2019-06-08] MEDS ORDERED: Folic Acid 1 MG TABLET PO SCH (21:00)
[2019-06-08] MEDS ORDERED: Divalproex (12 HR) 500 MG TABLET PO SCH (21:00)
[2019-06-09] MEDS: *HR* HYDROmorphone (PF) 1 MG/ML SYRINGE IVP PRN ×3 (00:12→11:37)
[2019-06-09] MEDS: *HR* Heparin 5,000 UNIT/ML VIAL SQ SCH (05:17)
[2019-06-09] MEDS: *HR* OxyCODONE/APAP 5/325 TABLET PO PRN ×2 (05:19→10:00)
[2019-06-09] MEDS: *HR* Promethazine 25 MG/ML VIAL IVP PRN (05:19)
--- NOTE | 2019-06-09 09:47 | Discharge Summary ---
Date of Encounter: 06/09/19 Time of Encounter: 10:00 - Discharge Diagnosis (1) Hydronephrosis, left Priority: Primary Status: Acute Assessment and Plan: 44 year old female with past medical history of asthma, hypertension, migraine, anxiety, kidney stones, and pulmonary lung nodules (scheduled for lung biopsy in a week as outpatient). She presented with today's history of severe left flank pain. She said the pain started suddenly yesterday afternoon with a grade 10 out of 10, previously her groin when she is urinating and occasionally worsens with deep inspiration. Pain also was associated with bloody urine, an episode of vomiting,fever and chills last night. Patient thought she had pyelonephritis because this is how she felt when she got sick with pyelonephritis. She denies dysuria but admits frequency. She was assessed with left sided hydronephrosis 2/2 to ureterolithiasis. She was seen by urology who recommend possible diagnostic ureteroscopy and possible stone extraction as outpatient. She has an appointment for June 23. Her pain was adequately controlled and she was discharged on a short course of pain meds and antibiotics (2) Ureterolithiasis Priority: Primary Status: Acute Assessment and Plan: As described above. (3) Urinary tract infection Priority: Primary Status: Resolved Qualifiers: Urinary tract infection type: acute cystitis Hematuria presence: with hematuria Qualified Code(s): N30.01 - Acute cystitis with hematuria (4) Hematuria Priority: Primary Status: Acute Qualifiers: Hematuria type: unspecified type Qualified Code(s): R31.9 - Hematuria, unspecified (5) Hypertension Priority: Primary Status: Chronic Qualifiers: Hypertension type: essential hypertension Qualified Code(s): I10 - Essential (primary) hypertension (6) Pulmonary nodules/lesions, multiple Priority: Primary Status: Acute (7) DVT prophylaxis Priority: Primary Status: Acute Hospital course: Ms. Henderson is a 44 year old female - Time Spent with Patient Total time spent providing and/or coordinating discharge services: - Discharge Medications Prescriptions: New OxyCODONE/APAP 5/325 [Percocet 5/325 MG] 1 each PO Q4HR PRN 6 Days #20 tablet PRN Reason: Pain Cefdinir [Omnicef] 300 mg PO BID #6 capsule Ondansetron HCl [Zofran] 4 mg PO Q8HR PRN 7 Days #30 tab PRN Reason: Nausea And Vomiting No Action Estradiol [Estrace] 2 mg PO HS Albuterol Sulfate [Proventil Inhaler] 2 puff IH Q6H PRN PRN Reason: Shortness Of Breath Divalproex (12 HR) [Depakote (12 HR)] 1,000 mg PO HS ALPRAZolam [Xanax 0.5 MG Tablet] 0.5 mg PO HS PRN PRN Reason: Anxiety Lisinopril/Hydrochlorothiazide [Zestoretic 10-12.5 mg Tablet] 1 tab PO HS Folic Acid 1 mg PO HS Home Medications: Estradiol [Estrace] 2 mg PO HS 10/24/15 [History] Albuterol Sulfate [Proventil Inhaler] 2 puff IH Q6H PRN 12/12/17 [History] Divalproex (12 HR) [Depakote (12 HR)] 1,000 mg PO HS 05/01/19 [History] ALPRAZolam [Xanax 0.5 MG Tablet] 0.5 mg PO HS PRN 06/06/19 [History] Folic Acid 1 mg PO HS 06/07/19 [History] Lisinopril/Hydrochlorothiazide [Zestoretic 10-12.5 mg Tablet] 1 tab PO HS 06/07/19 [History] Cefdinir [Omnicef] 300 mg PO BID #6 capsule 06/09/19 [Rx] Ondansetron HCl [Zofran] 4 mg PO Q8HR PRN 7 Days #30 tab 06/09/19 [Rx] OxyCODONE/APAP 5/325 [Percocet 5/325 MG] 1 each PO Q4HR PRN 6 Days #20 tablet 06/09/19 [Rx] Allergies/Adverse Reactions: Allergy/AdvReac Type Severity Reaction Status Date / Time codeine Allergy Itching Verified 06/07/19 08:43 diphenhydramine Allergy See Verified 06/07/19 08:43 [From Benadryl] Comments hydrocodone [From Vicodin] Allergy Itching Verified 06/07/19 08:43 ibuprofen AdvReac Gastrointestinal Verified 06/07/19 08:43 Upset latex AdvReac Rash Verified 06/07/19 08:43 Date of admission: 06/06/19 17:20 Primary care physician: Roderick Moran MD Consults: 06/06/19 14:12 Consult to Urology [CONS] Stat Consulting Provider: Urology Margy Reason for Consult: Chronic cystitis, urethritis, pyelonephritis Time Notified: 14:13 Call Completed: No - Constitutional Vitals: Temp Pulse Resp BP Pulse Ox 97.9 F 84 16 96/62 94 06/09/19 07:19 06/09/19 07:19 06/09/19 07:19 06/09/19 07:19 06/09/19 07:19 Exam: GENERAL: Not in distress. Alert and Oriented HEENT: EOMI, PERRLA MOUTH:Moist oral mucosa NECK:No JVD, No lymph nodes. CHEST AND LUNGS: Normal breath sounds, no wheezes or crackles HEART: S1 and S2 normal, no murmurs ABDOMEN: Soft, nontender, no organomegaly, mild Left CVA tenderness. SKIN: Normal color, no rashes, no lesions EXTREMITIES: No deformity, no edema, no tenderness, no joint swelling or clubbing NEUROLOGICAL: Normal cognition, normal motor and sensory exam. - Patient Status Disposition: Home, Self-Care Condition: Fair - Discharge Instructions Instructions: Oxycodone/Acetaminophen (By mouth), Ondansetron (By mouth), Cefdinir (By mouth), Urinary Tract Infection in Women (DC) Follow Up With: Roderick Moran MD [Primary Care Provider] - 06/23/19 9:30 am
[2019-06-09 11:30] VITALS: BP 108/78
[2019-06-09] MEDS: cefTRIAXone 2,000 MG in Water for inj. (sterile) 20 ML IVP SCH (13:08)
== END 2019-06-09 15:36 | disposition home or self-care (01) ==
LOC: EMEROOARM 11:08 → 3ANU 11:08
PROVIDERS: ADMIT Internal Medicine Nephrology; ATTEND Internal Medicine Nephrology

== ENCOUNTER 2021-01-01 13:49 | Observation (INO) ==
[2021-01-01] MEDS ORDERED: Ondansetron 4 MG/2 ML VIAL IVP ONE (14:11)
[2021-01-01] MEDS ORDERED: 0.9 % Sodium Chloride 1,000 ML IVC ONE (14:11)
[2021-01-01] MEDS ORDERED: Morphine Sulfate 2 MG/ML SYRINGE IVP ONE (14:15)
[2021-01-01 14:29] LABS: Bacteria,Urine Few per hpf (None-Few); Bilirubin,Urine Negative (Negative); Blood,Urine Large (Negative); Clarity,Urine Turbid (Clear); Color,Urine Yellow (Yellow); Glucose,Urine (UA) Normal (Normal); Ketones,Urine Trace mg/dL (Negative); Leukocyte Esterase,Urine Large (Negative); Mucus,Urine Few per lpf (None-Few); Nitrite,Urine Negative (Negative); Protein,Urine 30 mg/dL (Neg-Trace); RBC,Urine TNTC per hpf (0-3); Specific Gravity,Urine 1.018 (1.010-1.025); Squamous Epithelial Cell,Urine Moderate per hpf (None-Few); Urobilinogen,Urine Normal (Normal); WBC,Urine TNTC per hpf (0-3)
[2021-01-01 14:31] LABS: Basophils % 0.2 %; Eosinophils # 0.3 K/mcL (0.0-0.6); Eosinophils % 2.9 %; Hematocrit 40.3 % (35.3-44.9); Hemoglobin 13.2 g/dL (11.5-15.4); Immature Granulocytes % 0.2 % (0-4); Lymphocytes # 3.8 K/mcL (0.6-4.6); Lymphocytes % 40.9 %; Mean Corpuscular HGB Conc 32.8 g/dL (31.6-35.5); Mean Corpuscular Hemoglobin 30.5 pg (28.0-33.3); Mean Corpuscular Volume 93.1 fL (83.0-100.0); Mean Platelet Volume 9.1 fL (9.4-12.4); Monocytes # 0.6 K/mcL (0.0-1.3); Neutrophils # 4.6 K/mcL (1.6-8.9); Platelet Count 184 K/mcL (140-400); Red Blood Count 4.33 M/mcL (3.82-4.97); Red Cell Distribution Width 12.4 % (11.5-14.5); Segmented Neutrophils % 49.8 %; White Blood Count 9.2 K/mcL (4.3-11.1)
[2021-01-01] MEDS ORDERED: cefTRIAXone 1,000 MG in Water for inj. (sterile) 10 ML IVP ONE (14:46)
[2021-01-01 14:56] LABS: Alanine Aminotransferase 7 Units/L (7-52); Albumin 4.1 g/dL (3.5-5.7); Albumin/Globulin Ratio 1.2 (1.1-2.2); Alkaline Phosphatase 66 Units/L (34-104); Aspartate Amino Transferase 12 Units/L (13-39); BUN/Creatinine Ratio 13 (6-26); Bilirubin,Direct 0.1 mg/dL (0.0-0.2); Bilirubin,Indirect 0.1 mg/dL (0.0-1.0); Bilirubin,Total 0.2 mg/dL (0.3-1.0); Blood Urea Nitrogen 9 mg/dL (6-20); Calcium 9.2 mg/dL (8.6-10.3); Carbon Dioxide 25 mEq/L (23-29); Chloride 102 mEq/L (98-107); Globulin 3.3 g/dL (2.4-3.5); Glucose 113 mg/dL (70-105); Lipase 16 Units/L (11-82); Osmolality,Calculated 285 (280-300); Sodium 138 mEq/L (136-145); Total Protein 7.4 g/dL (6.4-8.9); eGFR For African Americans > 60 (> 60); eGFR For Non-African Americans > 60 (> 60)
[2021-01-01] MEDS ORDERED: Prochlorperazine 10 MG/2 ML VIAL IVP STA (15:18)
[2021-01-01] MEDS ORDERED: *HR* HYDROmorphone (PF) 1 MG/ML SYRINGE IVP ONE (15:18)
[2021-01-01] MEDS ORDERED: cefTRIAXone 1,000 MG in Water for inj. (sterile) 10 ML IVP STA (16:58)
[2021-01-01] MEDS ORDERED: Naloxone 0.4 MG/ML INJ IVP PRN ×3 (17:19→17:38)
[2021-01-01] MEDS ORDERED: Melatonin 3 MG TABLET PO PRN (17:33)
[2021-01-01] MEDS ORDERED: *HR* HYDROcodone/Acet 5/325 mg TABLET PO PRN (17:38)
[2021-01-01] MEDS ORDERED: Acetaminophen 325 MG TABLET PO PRN (17:38)
[2021-01-01] MEDS ORDERED: *HR* OxyCODONE Immed Rel 5 MG TABLET PO PRN (17:38)
[2021-01-01] MEDS ORDERED: Morphine Sulfate 2 MG/ML SYRINGE IVP STA (17:40)
[2021-01-01] MEDS: 0.9 % Sodium Chloride 1,000 ML IVC SCH ×2 (17:47→20:20)
[2021-01-01] MEDS: *HR* LORazepam 1 MG TABLET PO SCH (19:40)
[2021-01-01] MEDS: Ondansetron 4 MG/2 ML VIAL IVP PRN (20:12)
[2021-01-01] MEDS ORDERED: Divalproex (24 HR) 500 MG TABLET PO SCH (21:00)
[2021-01-01] MEDS: Ringers Solution, Lactated 1,000 ML IVC SCH (21:41)
[2021-01-01] MEDS: Morphine Sulfate 2 MG/ML SYRINGE IVP PRN (23:29)
[2021-01-02] MEDS: Morphine Sulfate 2 MG/ML SYRINGE IVP PRN ×2 (03:58→08:13)
[2021-01-02] MEDS: Ondansetron 4 MG/2 ML VIAL IVP PRN ×2 (05:59→15:25)
[2021-01-02 06:06] LABS: Basophils % 0.3 %; Eosinophils # 0.2 K/mcL (0.0-0.6); Eosinophils % 3.2 %; Hematocrit 34.5 % (35.3-44.9); Immature Granulocytes % 0.2 % (0-4); Lymphocytes # 3.2 K/mcL (0.6-4.6); Lymphocytes % 51.3 %; Mean Corpuscular Hemoglobin 30.6 pg (28.0-33.3); Mean Corpuscular Volume 92.5 fL (83.0-100.0); Monocytes # 0.4 K/mcL (0.0-1.3); Monocytes % 6.8 %; Neutrophils # 2.4 K/mcL (1.6-8.9); Platelet Count 170 K/mcL (140-400); Red Blood Count 3.73 M/mcL (3.82-4.97); Red Cell Distribution Width 12.6 % (11.5-14.5); Segmented Neutrophils % 38.2 %; White Blood Count 6.2 K/mcL (4.3-11.1)
[2021-01-02 06:07] LABS: Hemoglobin 11.4 g/dL (11.5-15.4)
[2021-01-02 06:32] LABS: Alanine Aminotransferase 9 Units/L (7-52); Albumin 3.4 g/dL (3.5-5.7); Albumin/Globulin Ratio 1.1 (1.1-2.2); Alkaline Phosphatase 52 Units/L (34-104); Aspartate Amino Transferase 11 Units/L (13-39); BUN/Creatinine Ratio 10 (6-26); Bilirubin,Total 0.3 mg/dL (0.3-1.0); Blood Urea Nitrogen 7 mg/dL (6-20); Calcium 8.3 mg/dL (8.6-10.3); Carbon Dioxide 27 mEq/L (23-29); Chloride 107 mEq/L (98-107); Glucose 100 mg/dL (70-105); Magnesium 1.5 mg/dL (1.6-2.6); Osmolality,Calculated 290 (280-300); Phosphorous 3.5 mg/dL (2.7-4.5); Potassium 4.2 mEq/L (3.5-5.1); Sodium 141 mEq/L (136-145); Total Protein 6.4 g/dL (6.4-8.9); eGFR For African Americans > 60 (> 60); eGFR For Non-African Americans > 60 (> 60)
[2021-01-02] MEDS: *HR* LORazepam 1 MG TABLET PO SCH (08:49)
[2021-01-02] MEDS: Calcium Gluconate 1gm/50mL 1 GM/50 ML BAG IVPB SCH ×2 (09:22→10:01)
[2021-01-02] MEDS: Ringers Solution, Lactated 1,000 ML IVC SCH (09:23)
[2021-01-02] MEDS ORDERED: *HR* OxyCODONE Immed Rel 5 MG TABLET PO PRN (09:31)
[2021-01-02 12:55] LABS: Hematocrit 35.5 % (35.3-44.9); Hemoglobin 11.9 g/dL (11.5-15.4)
[2021-01-02 13:18] LABS: % Iron Saturation 43 % (15-50); Iron 154 mcg/dL (50-170); Transferrin 257 mg/dL (203-362)
[2021-01-02 13:36] LABS: Ferritin 47 ng/mL (10-120)
[2021-01-02 13:41] LABS: Folate 11.8 ng/mL (3.0-16.0)
[2021-01-02] MEDS ORDERED: cefTRIAXone 2,000 MG in Water for inj. (sterile) 20 ML IVPB SCH (15:00)
[2021-01-02] MEDS ORDERED: Budesonide/Formoterol 80/4.5 1 PUFF INH IH PRN (16:03)
[2021-01-02] MEDS: *HR* OxyCODONE Immed Rel 5 MG TABLET PO PRN (17:59)
[2021-01-02] MEDS ORDERED: Ketorolac 30 MG/ML VIAL IVP ONE (19:40)
[2021-01-02] MEDS ORDERED: Divalproex (12 HR) 500 MG TABLET PO SCH (21:00)
[2021-01-02] MEDS: *HR* OxyCODONE/APAP 5/325 TABLET PO PRN (23:06)
[2021-01-03] MEDS: *HR* OxyCODONE Immed Rel 5 MG TABLET PO PRN ×2 (02:29→10:28)
[2021-01-03] MEDS: *HR* OxyCODONE/APAP 5/325 TABLET PO PRN (05:42)
[2021-01-03] MEDS: Ondansetron 4 MG/2 ML VIAL IVP PRN (05:42)
[2021-01-03 05:43] LABS: Hemoglobin 12.1 g/dL (11.5-15.4); Mean Corpuscular HGB Conc 32.7 g/dL (31.6-35.5); Mean Corpuscular Hemoglobin 30.7 pg (28.0-33.3); Mean Corpuscular Volume 93.9 fL (83.0-100.0); Mean Platelet Volume 9.1 fL (9.4-12.4); Platelet Count 156 K/mcL (140-400); Red Blood Count 3.94 M/mcL (3.82-4.97); Red Cell Distribution Width 12.1 % (11.5-14.5)
[2021-01-03 06:06] LABS: BUN/Creatinine Ratio 13 (6-26); Blood Urea Nitrogen 8 mg/dL (6-20); Calcium 9.1 mg/dL (8.6-10.3); Carbon Dioxide 25 mEq/L (23-29); Chloride 104 mEq/L (98-107); Glucose 106 mg/dL (70-105); Osmolality,Calculated 283 (280-300); Potassium 4.1 mEq/L (3.5-5.1); Sodium 137 mEq/L (136-145); eGFR For African Americans > 60 (> 60); eGFR For Non-African Americans > 60 (> 60)
[2021-01-03 07:20] VITALS: BP 135/88
[2021-01-03] MEDS: *HR* LORazepam 1 MG TABLET PO SCH (08:36)
== END 2021-01-03 10:59 | disposition home or self-care (01) ==
LOC: 3BNU 13:49 → EMEROOARM 13:49 → SUATTDRO 17:21 → 3BNU 18:21
PROVIDERS: ADMIT Internal Medicine; ATTEND Internal Medicine